=== PATIENT | female | born 1950 | race Caucasian/White ===

== ENCOUNTER 2016-11-28 15:29 | Emergency (ER) | payer MEDICARE, MEDICAID ==
[~2016-11-28] VITALS: Ht 162.6 cm; Wt 75.3 kg
[~2016-11-28 15:29] MED LIST: /DULO30CA PO; /PHEN50TA PO; ASPI325T PO; BACL10TA2 PO; BENI20TA5 PO; CALC-190 PO; CLOP75TA2 PO; CYCL5TAB PO; DILA100C PO; FLUO20CA8 PO; GABA300C2 PO; HYDR12.56 PO; IBAN150T PO; LYRI75CA PO; METF500T PO; OXYC-208 PO; OXYC5CAP2 PO; POTA75TA2 PO; REME30TA PO; SOMA350T PO; VICO5TAB PO; VOLT1GEL2 TOP; ZETI10TA21 PO
[2016-11-28] MEDS ORDERED: fentaNYL 100 MCG/2 ML INJECTION (J3010) IV ONE ×2 (16:15→18:15)
[2016-11-28 16:32] LABS: BASO # 0.1 K/mm3 (0.0-0.2); BASO % 0.6 % (0.0-1.0); EOS # 0.1 K/mm3 (0.0-0.50); EOS % 0.9 % (0.0-3.0); LARGE UNSTAINED CELL # 0.1 K/mm3 (0.0-0.4); LARGE UNSTAINED CELL % 0.8 % (0.0-4.0); LYMPH # 2.2 K/mm3 (1.5-4.5); LYMPH % 14.9 % (24.0-44.0); MEAN CORPUSCULAR HEMOGLOBIN 30.2 pg (27.0-33.0); MEAN CORPUSCULAR HGB CONC 33.4 g/dl (32.0-36.5); MEAN CORPUSCULAR VOLUME 90.5 fl (80.0-96.0); MONO # 0.3 K/mm3 (0.0-0.8); MONO % 2.3 % (0.0-5.0); NEUTROPHILS # 11.2 K/mm3 (1.8-7.7); NEUTROPHILS % 80.5 % (36.0-66.0); PLATELET COUNT, AUTOMATED 272 k/mm3 (150-450); RED CELL DISTRIBUTION WIDTH 13.2 % (11.5-14.5); WHITE BLOOD COUNT 13.9 K/mm3 (4.0-10.0)
[2016-11-28 16:46] LABS: INR 0.97
[2016-11-28 16:52] LABS: ANION GAP 5 MEQ/L (8-16); BLOOD UREA NITROGEN 24 MG/DL (7-18); CALCIUM LEVEL 9.4 MG/DL (8.8-10.2); CARBON DIOXIDE LEVEL 29 MEQ/L (21-32); CHLORIDE LEVEL 104 MEQ/L (98-107); CREATININE FOR GFR 0.91 MG/DL (0.55-1.02); GLOMERULAR FILTRATION RATE > 60.0 (>45); GLUCOSE, FASTING 152 MG/DL (80-110); POTASSIUM SERUM 3.5 MEQ/L (3.5-5.1); SODIUM LEVEL 138 MEQ/L (136-145)
[2016-11-28 18:33] VITALS: BP 143/63
== END 2016-11-28 18:36 | disposition short-term general hospital (02) ==
LOC: EDBD 15:29 → M ED 17:02
DX: I99.8 Other disorder of circulatory system (principal); M79.661 Pain in right lower leg; Z95.828 Presence of other vascular implants and grafts; E11.9 Type 2 diabetes mellitus without complications; I10 Essential (primary) hypertension; E78.00 Pure hypercholesterolemia, unspecified; F32.9 Major depressive disorder, single episode, unspecified; F17.200 Nicotine dependence, unspecified, uncomplicated; Z88.5 Allergy status to narcotic agent; Z88.0 Allergy status to penicillin; Z88.8 Allergy status to other drugs, medicaments and biological substances; Z79.899 Other long term (current) drug therapy; Z79.82 Long term (current) use of aspirin; Z79.01 Long term (current) use of anticoagulants; Z86.73 Personal history of transient ischemic attack (TIA), and cerebral infarction without residual deficits; Z86.711 Personal history of pulmonary embolism
CPT/HCPCS: 80048; 85025; 85610; 85730; 96374; 96376; 99284; J3010

== ENCOUNTER → 2016-12-29 | Outpatient (CLI) | payer MEDICARE, MEDICAID ==
[~2016-12-29] MED LIST changes: +ISOVUE-370 76% 100ML VIAL (Q9967) As Ordered ONE
--- NOTE | 2016-12-30 10:10 | REP ---
CT ANGIOGRAM ABDOMINAL AORTA AND BILATERAL LOWER EXTREMITIES: CT angiogram of the abdominal aorta and bilateral lower extremities performed following the intravenous administration of 100 mL of Isovue-370. Sagittal, coronal and MIP reconstruction images are performed. Comparison made with prior study of 11/12/2015. Moderate atherosclerotic plaquing and narrowing is seen of the distal abdominal aorta. There is moderate stenosis of the celiac artery, which appears unchanged. There is moderate narrowing of the origin of the superior mesenteric artery, which appears unchanged. Tiny inferior mesenteric artery is present. There appears to be at least a moderate degree of stenosis of the proximal renal arteries bilaterally. Right common iliac artery demonstrates moderate diffuse circumferential calcific plaque and moderate narrowing. Moderately severe stenosis is seen of the proximal right external iliac artery which appears to have worsened somewhat since the prior exam. There is high grade stenosis of the right internal iliac artery. There is moderate diffuse narrowing of the remaining right external iliac artery as well as the right common femoral artery. In the interim, since the prior study, the patient had placement of a right femoral popliteal bypass graft. There is no contrast in the graft consistent with occlusion. Moderate narrowing is seen diffusely of the right profunda artery. [place] right superficial femoral artery appears occluded. There are multiple small collateral vessels traversing through the right thigh soft tissues. There appears to be occlusion of the right popliteal artery. There does appear to be reconstitution of the proximal right anterior tibial artery which traverses into the right foot. A very thin peroneal artery is seen which is visualized into the distal third of the right calf. The posterior tibial artery demonstrates extensive calcification but no flow. Left common iliac artery demonstrates moderate diffuse narrowing. There appears to be fairly high grade stenosis at the origin of the left external iliac artery. Left internal iliac artery appears occluded. There is moderate diffuse narrowing of the more distal left external iliac artery and common femoral artery. Left profunda is patent with mild narrowing. There is occlusion of the origin of the left superficial femoral artery. Multiple small clot or vessels traverse through the soft tissues of the left thigh. Proximal left popliteal artery is reconstituted and is quite thin. There is moderate diffuse narrowing of the left popliteal artery. Left anterior tibial artery is visualized and is quite thin in the distal calf, but does traverse into the left foot. Peroneal artery is also quite thin distally and appears to terminate just above the ankle. Posterior tibial artery is moderately narrowed proximally and appears to terminate just above the ankle. A small nodule in the right lung is unchanged since the prior study. Liver, spleen, pancreas and kidneys appear unremarkable. There is adrenal gland thickening bilaterally which is stable. No adenopathy, free air or free fluid is seen in the abdomen or pelvis. IMPRESSION: No change in the degree of narrowing of the mesenteric arteries and renal arteries. There appears to be increased moderate to severe stenosis at the origin of the right external iliac artery. The right fem-pop bypass graft is occluded. Right superficial femoral artery is occluded. Multiple collateral vessels reconstitute the anterior tibial and peroneal arteries in the right calf with only a thin anterior tibial artery seen entering the right foot. High grade stenosis at the origin of the left external iliac artery appears to have increased since prior study. There is occlusion of the left superficial femoral artery. Multiple collateral vessels reconstitute a moderately narrowed left popliteal artery. All three calf arteries on the left extend into the distal calf, but only the anterior tibial artery is seen entering the left foot. Signed by Jax Gutierrez MD 01/02/2017 03:59 P
== END ==
LOC: M RAD 15:15
PROVIDERS: ATTEND Surgery Vascular Surgery
DX: I70.511 Atherosclerosis of nonautologous biological bypass graft(s) of the extremities with intermittent claudication, right leg (principal)
CPT/HCPCS: 75635; Q9967

== ENCOUNTER → 2017-05-09 | Outpatient (REF) | payer MEDICARE, MEDICAID ==
[~2017-05-09] MED LIST changes: -ISOVUE-370 76% 100ML VIAL (Q9967) As Ordered ONE; -METF500T PO; +METF500T13 PO
== END ==
LOC: EEVIPCON 16:28 → M LAB REF 16:28
PROVIDERS: ATTEND Nurse Practitioner Adult Health
DX: T87.40 Infection of amputation stump, unspecified extremity (principal)

== ENCOUNTER → 2018-04-04 | Outpatient (REF) | payer MEDICARE, MEDICAID | LOC: M LAB REF 17:23 | DX: L89.891 Pressure ulcer of other site, stage 1 (principal) | CPT/HCPCS: 87186 ==

== ENCOUNTER → 2019-03-04 | Outpatient (REF) | payer MEDICARE, MEDICAID ==
[~2019-03-04] MED LIST changes: -/DULO30CA PO; -/PHEN50TA PO; +CYMB1CAP5 PO; +[UNRECOGNIZED DRUG - CODE] PO
[2019-03-04 18:44] LABS: C REACTIVE PROTEIN QUANTITATIV 3.24 MG/DL (0.00-0.30)
[2019-03-07 14:09] LABS: Alkaline Phosphatase Iso-Bone 34 % (14-68); Alkaline Phosphatase Iso-Intes 29 % (0-18); Alkaline Phosphatase Iso-Liver 37 % (18-85); TOTAL ALK PHOS 186 IU/L (39-117)
== END ==
LOC: M LAB REF 16:57
PROVIDERS: ATTEND Internal Medicine
DX: R74.8 Abnormal levels of other serum enzymes (principal); M86.9 Osteomyelitis, unspecified

== ENCOUNTER → 2019-04-29 | Outpatient (REF) | payer MEDICARE, MEDICAID | LOC: M LAB REF 17:14 | PROVIDERS: ATTEND Internal Medicine | DX: M86.9 Osteomyelitis, unspecified (principal) ==

== ENCOUNTER 2019-12-18 00:55 | Inpatient (IN) | payer MEDICARE, MEDICAID ==
[~2019-12-18] VITALS: Ht 157.5 cm; Wt 68.8 kg
[2019-12-18 02:45] VITALS: BP 148/64
[2019-12-18] MEDS: ACETAMINOPHEN TAB 650MG DOSE (2X325MG) PO PRN ×2 (03:21→20:21)
[2019-12-18] MEDS: NS 1,000 ML IV SCH ×2 (03:21→15:32)
[2019-12-18 03:43] LABS: BASO # 0.1 10^3/uL (0.0-0.2); BASO % 0.9 % (0.0-1.0); EOS # 0.1 10^3/uL (0.0-0.5); EOS % 0.9 % (0.0-3.0); HEMATOCRIT 29.3 % (36.0-47.0); HEMOGLOBIN 8.4 g/dl (12.0-15.5); LYMPH # 3.3 10^3/uL (1.5-5.0); LYMPH % 20.3 % (24.0-44.0); MEAN CORPUSCULAR HGB CONC 28.7 g/dl (32.0-36.5); MEAN CORPUSCULAR VOLUME 69.9 fl (80.0-96.0); MONO # 0.9 10^3/uL (0.0-0.8); MONO % 5.7 % (0.0-5.0); NEUTROPHILS # 11.7 10^3/uL (1.5-8.5); NEUTROPHILS % 71.7 % (36.0-66.0); PLATELET COUNT, AUTOMATED 553 10^3/uL (150-450); RED BLOOD COUNT 4.19 10^6/uL (4.00-5.40); WHITE BLOOD COUNT 16.3 10^3/uL (4.0-10.0)
[2019-12-18 03:53] LABS: INR 1.46; PROTHROMBIN TIME 17.4 SECONDS (11.8-14.0)
[2019-12-18 04:00] VITALS: BP 131/65
[2019-12-18 04:06] LABS: ALBUMIN 3.1 GM/DL (3.2-5.2); ALT/SGPT 12 U/L (12-78); BILIRUBIN,TOTAL 0.5 MG/DL (0.2-1.0); BLOOD UREA NITROGEN 11 MG/DL (7-18); CALCIUM LEVEL 8.5 MG/DL (8.8-10.2); CARBON DIOXIDE LEVEL 26 MEQ/L (21-32); CHLORIDE LEVEL 107 MEQ/L (98-107); CREATININE FOR GFR 0.69 MG/DL (0.55-1.30); GLOMERULAR FILTRATION RATE > 60.0 (>45); GLUCOSE, FASTING 98 MG/DL (70-100); POTASSIUM SERUM 3.5 MEQ/L (3.5-5.1); SODIUM LEVEL 139 MEQ/L (136-145); TOTAL PROTEIN 7.1 GM/DL (6.4-8.2)
[2019-12-18] MEDS ORDERED: BUPR15TASR PO (04:29)
[2019-12-18] MEDS ORDERED: ROSU5TAB5 PO (04:29)
[2019-12-18] MEDS ORDERED: OLME20TA2 PO (04:29)
[2019-12-18] MEDS ORDERED: GABA600T4 PO (04:29)
[2019-12-18] MEDS ORDERED: ZETI10TA16 PO (04:29)
[2019-12-18] MEDS ORDERED: XARE20TA PO (04:29)
[2019-12-18] MEDS ORDERED: NORT10CA2 PO (04:29)
[2019-12-18] MEDS ORDERED: FLUO20TA28 PO (04:29)
[2019-12-18] MEDS ORDERED: MIRT1TAB17 PO (04:29)
[2019-12-18] MEDS ORDERED: OMEP-218 PO (04:29)
[2019-12-18] MEDS ORDERED: HYDR-3713 PO (04:29)
[2019-12-18] MEDS ORDERED: JANU100T PO (04:29)
[2019-12-18] MEDS ORDERED: LORA0.5T5 PO (04:29)
[2019-12-18] MEDS ORDERED: MELA10TA PO (04:53)
[2019-12-18] MEDS ORDERED: TORS100T PO (04:53)
[2019-12-18] MEDS ORDERED: ASPI-1 PO (04:53)
--- NOTE | 2019-12-18 05:45 | HPEPDOC ---
General Date of Admission Dec 18, 2019 at 02:45 Date of Service: Dec 18, 2019 Primary Care Physician: Jr Waters Collins Other Providers Wound care: Dr. Almodovar Vascular surgeon: Dr. Jacobsen in [place] Attending Physician: KEY DOBSON MD Chief Complaint The patient is a 69-year-old female admitted with a reason for visit of Symptomatic Anemia. History of Present Illness HPI: This is a 69-year-old female with significant peripheral vascular disease, S/P femoropopliteal bypass years ago, initially on aspirin and Plavix, then switched to aspirin and Xarelto for the past 1-2 years - patient unsure why. She is a direct transfer from [facility] for anemia requiring further workup and GI intervention. She was sent initially to the hospital by her PCP after she had routine labs drawn for an annual physical and found incidentally to have a hemoglobin of 6.1, down from 9.5 in August. She reportedly tested guaiac positive, received 2 units PRBC at [place], thereafter was transferred for GI intervention. Her repeat hemoglobin upon transfer is up to 8.4. When examined at bedside, she is hemodynamically stable and asymptomatic. She denies all complaints and reports that had it not been for her lab work, she would feel like her normal self. Denies any history of bleeds or ever requiring blood transfusions. Denies any blood loss or any changes in bowels. She reports she had 1 colonoscopy for routine screening over a decade ago which she reports was normal besides a few polyps. 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 Nain Pringle Left iliac endarthrectomy 2018 Left iliac to popliteal bypass 2018 Hysterectomy Left carotid endarterectomy, 3 stents Cataract Sx Family Hx: Brother with lung cancer Father with stroke Mother with heart disease Social Hx: Long-term smoker 1-1.5 PPD since teenage years Denies alcohol or illicit substances Lives alone at home; niece nearby to help ROS: Constitutional: Denies fever, chills, night sweats, weight loss HEENT: Denies headache, dysphagia Skin: Denies any rashes or lesions. Admits to left lower extremity wounds Pulmonary: Denies dyspnea, cough, wheezing Cardiac: Denies chest pain, palpitations, orthopnea, PND, edema, lightheadedness GI: Denies nausea, vomiting, abdominal pain, dyspepsia, diarrhea, constipation, melena, hematochezia, appetite change, bloating : Denies hematuria MSK: Denies new pains or weakness. Admits chronic wound pain. Neurologic: Denies new numbness/tingling PHYSICAL: General exam: A&Ox3, NAD, resting comfortably HEENT: NCAT, EOMI, anicteric sclera, pale conjunctiva, moist mucous membranes, neck supple without adenopathy Cardiac: RRR, normal S1 & S2, no murmurs Respiratory: CTAB, good air exchange, no w/r/r Abdomen: soft, NT, ND, normoactive bowel sounds. No hepatosplenomegaly or palpable masses Extremity: 2+ radial pulses, no edema or calf tenderness. Right AKA with soft healthy-appearing stump. Skin: Pale-appearing, warm, dry, no visible rash. Left lower extremity with 2 dressings for chronic lower leg wounds Msk: strength 5/5 all limbs, normal tone Neuro: normal speech, no focal deficits Psych: Normal mood, flat affect LABORATORY DATA, MICROBIOLOGY: Please see below. ASSESSMENT AND PLAN: This is a 69-year-old female directly transferred from [facility]. She has extensive past medical history as noted above, chronically on Plavix and Xarelto for peripheral vascular disease with stents, carotid artery disease with stents, and questionable history of a PE. She was incidentally found to have a hemoglobin of 6.1, down from 9.5 just 3 months ago. Is asymptomatic and denies all blood loss. 1. Acute blood loss anemia - Hemoglobin dropped from 9.5-6.1 since August - Patient denies all symptoms and denies any visual blood loss - Reportedly guaiac positive at [facility] - S/P 2 units PRBC prior to transfer, with adequate rise up to 8.4 upon admission - Verbal and written consent for transfusion obtained with staff present - Trend H&H and transfuse as needed. Hemodynamically stable - Xarelto and ASA on hold - Monitor on telemetry. Consult GI in the morning for possible scope - Will make nothing by mouth & on IVF tentatively until day team discusses with GI For the remainder of her chronic medical conditions as aforementioned, hold home meds in case patient will go for scope today. DVT prophylaxis: mechanical CODE STATUS: Discussed with patient. She is unsure and would like more time to think about it. She also has no appointed healthcare proxy, but reports she would like her niece to make decisions if needed. DISPOSITION: Admit to hospital. Call GI in a.m. Home Medications Scheduled Aspirin (Aspirin) 325 Mg Tablet, 325 MG PO DAILY, (Reported) Bupropion HCl (Bupropion HCl Sr) 150 Mg Tab.er.12h, 150 MG PO DAILY, (Reported) Ezetimibe (Zetia) 10 Mg Tablet, 10 MG PO DAILY, (Reported) Fluoxetine HCl (Fluoxetine HCl) 20 Mg Tablet, 30 MG PO DAILY, (Reported) Gabapentin (Gabapentin) 600 Mg Tablet, 600 MG PO TID, (Reported) Melatonin (Melatonin) 10 Mg Tab.mphase, 15 MG PO QHS, (Reported) Mirtazapine (Mirtazapine) 45 Mg Tab.rapdis, 45 MG PO QHS, (Reported) Nortriptyline HCl (Nortriptyline HCl) 10 Mg Capsule, 10 MG PO QHS, (Reported) Olmesartan Medoxomil (Olmesartan Medoxomil) 20 Mg Tablet, 20 MG PO DAILY, (Reported) Omeprazole (Omeprazole) 20 Mg Capsule.dr, 20 MG PO DAILY, (Reported) Rivaroxaban (Xarelto) 20 Mg Tablet, 20 MG PO DAILY, (Reported) Rosuvastatin Calcium (Rosuvastatin Calcium) 5 Mg Tablet, 5 MG PO QHS, (Reported) Sitagliptin Phosphate (Januvia) 100 Mg Tablet, 100 MG PO DAILY, (Reported) Torsemide (Torsemide) 100 Mg Tablet, 100 MG PO DAILY, (Reported) Scheduled PRN Lorazepam (Lorazepam) 0.5 Mg Tablet, 0.5 MG PO DAILY PRN for ANXIETY, (Reported) Allergies Coded Allergies: Penicillins (Verified Allergy, Intermediate, HIVES, 12/18/19) pregabalin (Verified Allergy, Unknown, SPASMS, 12/18/19) morphine (Verified Adverse Reaction, Intermediate, HALLUCINATIONS, 12/18/19) codeine (Verified Adverse Reaction, Mild, NAUSEA, 12/18/19) A-FIB/CHADSVASC A-FIB History Current/History of A-Fib/PAF?: No Vital Signs Vital Signs Date Time Temp Pulse Resp B/P (MAP) Pulse Ox O2 Delivery O2 Flow Rate FiO2 12/18/19 02:45 97.2 90 16 148/64 (92) 96 Room Air Laboratory Data Labs 24H Laboratory Tests 2 12/18/19 03:34: Immature Granulocyte % (Auto) 0.5, Neutrophils (%) (Auto) 71.7H, Lymphocytes (%) (Auto) 20.3L, Monocytes (%) (Auto) 5.7H, Eosinophils (%) (Auto) 0.9, Basophils (%) (Auto) 0.9, Neutrophils # (Auto) 11.7H, Lymphocytes # (Auto) 3.3, Monocytes # (Auto) 0.9H, Eosinophils # (Auto) 0.1, Basophils # (Auto) 0.1, Nucleated Red Blood Cells % (auto) 0.3H, Prothrombin Time 17.4H, Prothromb Time International Ratio 1.46, Anion Gap 6L, Glomerular Filtration Rate > 60.0, Lactic Acid Level 1.0, Calcium Level 8.5L, Total Bilirubin 0.5, Aspartate Amino Transf (AST/SGOT) 12, Alanine Aminotransferase (ALT/SGPT) 12, Alkaline Phosphatase 223H, Total Protein 7.1, Albumin 3.1L, Albumin/Globulin Ratio 0.78L CBC/BMP Laboratory Tests 12/18/19 03:34 Microbiology Microbiology 12/18/19 Blood Culture, Received Pending 12/18/19 Blood Culture, Received Pending Plan / VTE VTE Prophylaxis Ordered?: Yes GME ATTESTATION GME ATTESTATION My faculty preceptor for this patient encounter was physically present during the encounter and was fully available. All aspects of the patient interview, examination, medical decision making process, and medical care plan development were reviewed and approved by the faculty preceptor. The faculty preceptor is aware and concurs with the plan as stated in the body of this note and will attest to such by his/her cosignature. ATTENDING NOTE I, Key Dobson, have independently examined this patient and performed my own physical exam, as well as reviewed the documentation and edited where necessary. I have discussed in detail with the resident / student the findings and plan of treatment as documented by the resident / student and edited their note. I agree with their findings and treatment plan and have edited their documentation. I will continue to follow the patient during this hospital stay. JOSI العلي DO Dec 18, 2019 05:45 KEY DOBSON MD Dec 19, 2019 01:53
--- NOTE | 2019-12-18 06:31 | ECGEPIP ---
[facility] Test Date: 2019-12-18 Pat Name: DEONNA NUNN Department: Room: [place] [address] Gender: Female Facing Baster Jumpbasting: DESHAUN IRVIN : 1950 Requested By: JOSI العلي Order Number: [id number] Reading MD: Norm Pappas Measurements Intervals [place] Rate: 87 P: 59 OH: 172 QRS: 42 QRSD: 107 T: 34 QT: 375 QTc: 453 Interpretive Statements SINUS RHYTHM POSSIBLE LEFT ATRIAL ENLARGEMENT Comparison tracing not on file Electronically Signed on 12-18-2019 6:31:14 EDT by Norm Pappas
[2019-12-18 08:00] VITALS: BP 155/65
[2019-12-18] MEDS ORDERED: POTASSIUM CHLORIDE 10 MEQ SR TABLET PO ONE (08:00)
[2019-12-18] MEDS ORDERED: LORazepam 0.5 MG TAB PO PRN (08:15)
[2019-12-18] MEDS: GABAPENTIN 300 MG CAP PO SCH ×3 (08:56→20:22)
[2019-12-18] MEDS: EZETIMIBE 10 MG TAB (ZETIA) PO SCH (08:56)
[2019-12-18] MEDS ORDERED: DEXTROSE 50% 50 ML SYRINGE IV PRN (09:15)
[2019-12-18] MEDS ORDERED: GLUCOSE 4GM CHEW TABLET PO PRN (09:15)
[2019-12-18] MEDS ORDERED: GLUCAGON INJ 1MG VIAL SC PRN (09:15)
[2019-12-18] MEDS: OLMESARTAN MEDOXOMIL 20 MG TAB (BENICAR) PO SCH (10:18)
[2019-12-18] MEDS: FLUoxetine 10 MG CAP PO SCH (10:18)
[2019-12-18] MEDS: buPROPion **SR TABLET** (ZYBAN) 150MG PO SCH (10:18)
[2019-12-18] MEDS: FLUoxetine 20 MG CAP PO SCH (10:21)
[2019-12-18] MEDS: HumaLOG INSULIN (NovoLOG) PER UNIT SC SCH ×3 (11:22→20:26)
[2019-12-18 12:00] VITALS: BP 160/71
--- NOTE | 2019-12-18 13:55 | IPNPDOC ---
Text Note Date of Service The patient was seen on 12/18/19. NOTE Subjective: -reporting pain in her LLE, chronic, requesting her home norco PHYSICAL: General exam: A&Ox3, NAD HEENT: NCAT, EOMI, anicteric sclera, pale conjunctiva, moist mucous membranes Cardiac: RRR, normal S1 & S2, no murmurs Respiratory: CTAB, no w/r/r Abdomen: Normoactive bowel sounds, soft, NT, ND, noted hepatosplenomegaly or palpable masses Extremity: 2+ radial pulses, no edema or calf tenderness. Right AKA with intact stump, pale, Skin: Pale, warm, no rashes. Left lower extremity with 2 dressings that are c/d/i Msk: strength 5/5 all limbs, normal tone Neuro: normal speech, CN grossly intact, no focal deficits Psych: Normal mood, flat affect LABORATORY DATA wbc 16.3 hgb 8.4 platelets 553 INR 1.46 K 3.5 Cr 0.69 BCx - pending ASSESSMENT AND PLAN: 69-year-old W with history of PVD on plavix/rivaroxaban, questionable history of PE and CAD who was incidentally found to have worsening anemia on PCP routine labs and sent to the ED, down from hgb of 9.5, 3 months ago without noted history of melena, hematochezia or hematemesis. 1. Acute on chronic anemia: Likely GIB in the setting of full anticoagulation - Hemoglobin dropped from 9.5-6.1 since 08/2019, reportedly guaiac positive at [facility] - S/P 2 units PRBC prior to transfer, with adequate rise up to 8.4 upon admission, will monitor - Trend H&H and transfuse to goal Hgb >8 - Consulted GI this AM, will plan for likely both upper and lower scoping tomorrow, with prep today per Dr. Quiroga. Recommended clear liquid diet for today and prep. - NPO & IVF until discussion with GI - Hold ASA/rivaroxaban - NPO at midnight CAD -continue rosuvastatin/ezetimibe -hold ASA in the setting of ongoing GIB HLD: -continue rosuvastatin/ezetimibe PVD: --continue rosuvastatin/ezetimibe -hold ASA/rivaroxaban in the setting of presumed GIB DM: -hold sitagliptin and place on SSI -clear liquid diet -FSBG AC/HS -hypoglycemia protocol Depression and anxiety: -continue home fluoxetine, mirtazapine, ativan HTN: -continue ARB, hold torsemide Chronic LE pain: -continue home nortriptyline and gabapentin -restart home norco 5/325 Q6H PRN (confirmed with Kan Fontana) DVT ppx: SCDs, hold AC Diet: clear liquid diet CODE STATUS: Discussed with patient. She is unsure and would like more time to think about it, currently FULLCODE. She also has no appointed healthcare proxy, but reports she would like her niece to make decisions if needed. DISPOSITION:pending GI evaluation, for now will downgrade to same day surgery center. VS,Fishbone, I+O VS, Fishbone, I+O Laboratory Tests 12/18/19 03:34 Vital Signs Date Time Temp Pulse Resp B/P (MAP) Pulse Ox O2 Delivery O2 Flow Rate FiO2 12/18/19 04:00 97.5 86 18 131/65 (87) 95 Room Air I&O- Last 24 Hours up to 6 AM 12/18/19 06:00 Intake Total 220 ml Balance 220 ml JESICA KNIGHT MD Dec 18, 2019 08:05
[2019-12-18] MEDS: NORCO, ANEXSIA 5/325MG TABLET (HYDROcodone/ACETAMINOPHEN) PO PRN ×3 (14:21→21:52)
--- NOTE | 2019-12-18 15:49 | CR.PDOC ---
General Date of Consultation: Dec 18, 2019 Referring Provider: JESICA KNIGHT MD Attending Physician: MARI ADAMS MD Consultation Primary physician/ hospitalist: -Dr. Dobson / Dr. Waters Reason for consult: -Drop in hemoglobin and hematocrit with symptomatic anemia HPI: 69-year-old female patient with HTN, HLD, DM type II, PVD s/p femoropopliteal bypass many years ago, currently on aspirin and Xarelto for the past 1-2 years, right AKA, 4 years ago for gangrene, left carotid endarterectomy with 3 stents, prior hysterectomy, was admitted from [facility], after noticing anemia on routine labs.. Patient denies any active GI symptoms and denies any overt external bleeding. Patient reports her last Colonoscopy atleast 10 years ago and had colon polyps at that time ( done outside [facility] and no reports available). Patient never had EGD and denies any use of NSAIDs. Patient last dose of xarelto on Sunday/ sunday. Pertinent negative GI symptoms: Patient denies fever, sick contacts, recent travel, nausea, vomiting, diarrhea, abdominal pain, loss of appetite, early satiety or unintentional weight loss. No history of hematemesis, melena or hematochezia. Patient reports regular bowel movements. Review of Systems: GI: as stated above CVS: No chest pain, No palpitations, No leg swelling. RS: No Shortness of breath, No Wheezing, no cough DAG COATER: No dizziness, No motor weakness, No sensory problems Hematology: No bruising, No gum bleeding, Musculoskeletal: No joint pain, ambulating well. Skin: No rash : No hematuria, No burning sensation of the urine ENT: No ear discharge/ pain, No dysphagia. Eyes: No photophobia. Jaundice Home medications: reviewed. Antithrombotic agents: -Aspirin 81 MG and Xarelto -- last dose atleast 2 days ago. Medical h/o: As above. Surgical h/o: None on abdomen. Social h/o: Alcohol: -Denies, smoking:, Active smoker, IVDA/ drugs: Denies. Family h/o of GI cancers - None Prior Endoscopies: None in [facility] Prior GI evaluations: -None in [facility] Exam: Vitals: reviewed General: Alert and oriented x 3, not in distress HEENT: NO pallor, no icterus. Normal oropharynx, NO cervical lymph nodes. Chest: symmetric with bilateral clear air entry, CVS: S1, S2 heard, normal, no murmurs . Abdomen: non-distended, no surgical scars, soft, non-tender, no palpable masses, normal bowel sounds heard. Rectal exam: Patient refused / Deferred at this time in view of scheduled colonoscopy. Extremities: no pedal edema, pulses palpable. DAG COATER: no focal motor or sensory deficits. Moves all extremities Skin: no rash. Labs: reviewed. Impression: - Drop in hemoglobin and hematocrit with minimal symptoms of anemia and no overt external GI bleeding in a patient on anticoagulation with aspirin and Xarelto -- needs further evaluation to rule out chronic GI blood loss. DDx-- colon polyps vs AMVs, vs less likely PUD. Recommendations: - Patient educated about the test results, possible differential diagnoses and All questions answered. - Monitor H/ H and transfuse as needed to keep hemoglobin around 8- 9gm/ dL. - Consider IV PPI for now. - Consider hold Xarelto for now if not contraindicated. - Will schedule for EGD and Colonoscopy tomorrow after the bowel prep. Bowel prep ordered. - The procedures, indications, risks (bleeding, perforation, infection, hypotension, respiratory depression, allergy, need for endotracheal intubation, surgery, colostomy, cardiac arrest, even ), benefits, limitations (e.g., missing a lesion), and all other alternatives (including no intervention) were explained to the patient who understood and agreed for the procedures. - Please follow operative note for postprocedure recommendations. Plan of care discussed with patient and primary team. Patient verbalized understanding and agreed with the plan. Vital Signs/I&O Vital Signs Date Time Temp Pulse Resp B/P (MAP) Pulse Ox O2 Delivery O2 Flow Rate FiO2 12/18/19 15:29 20 12/18/19 12:00 97.9 88 160/71 (100) 97 Room Air Laboratory Data Labs 24H Laboratory Tests 2 12/18/19 03:34: Immature Granulocyte % (Auto) 0.5, Neutrophils (%) (Auto) 71.7H, Lymphocytes (%) (Auto) 20.3L, Monocytes (%) (Auto) 5.7H, Eosinophils (%) (Auto) 0.9, Basophils (%) (Auto) 0.9, Neutrophils # (Auto) 11.7H, Lymphocytes # (Auto) 3.3, Monocytes # (Auto) 0.9H, Eosinophils # (Auto) 0.1, Basophils # (Auto) 0.1, Nucleated Red Blood Cells % (auto) 0.3H, Prothrombin Time 17.4H, Prothromb Time International Ratio 1.46, Anion Gap 6L, Glomerular Filtration Rate > 60.0, Lactic Acid Level 1.0, Calcium Level 8.5L, Total Bilirubin 0.5, Aspartate Amino Transf (AST/SGOT) 12, Alanine Aminotransferase (ALT/SGPT) 12, Alkaline Phosphatase 223H, Total Protein 7.1, Albumin 3.1L, Albumin/Globulin Ratio 0.78L, Procalcitonin 0.16 12/18/19 11:12: Bedside Glucose (Misc Panel) 137H CBC/BMP Laboratory Tests 12/18/19 03:34 Microbiology Microbiology 12/18/19 Stool Occult Blood (BEATRIZ) - Final, Complete 12/18/19 Blood Culture, Received Pending 12/18/19 Blood Culture, Received Pending Allergies Coded Allergies: Penicillins (Verified Allergy, Intermediate, HIVES, 12/18/19) pregabalin (Verified Allergy, Unknown, SPASMS, 12/18/19) morphine (Verified Adverse Reaction, Intermediate, HALLUCINATIONS, 12/18/19) codeine (Verified Adverse Reaction, Mild, NAUSEA, 12/18/19) Home Medications Scheduled Aspirin (Aspirin) 325 Mg Tablet, 325 MG PO DAILY, (Reported) Bupropion HCl (Bupropion HCl Sr) 150 Mg Tab.er.12h, 150 MG PO DAILY, (Reported) Ezetimibe (Zetia) 10 Mg Tablet, 10 MG PO DAILY, (Reported) Fluoxetine HCl (Fluoxetine HCl) 20 Mg Tablet, 30 MG PO DAILY, (Reported) Gabapentin (Gabapentin) 600 Mg Tablet, 600 MG PO TID, (Reported) Melatonin (Melatonin) 10 Mg Tab.mphase, 15 MG PO QHS, (Reported) Mirtazapine (Mirtazapine) 45 Mg Tab.rapdis, 45 MG PO QHS, (Reported) Nortriptyline HCl (Nortriptyline HCl) 10 Mg Capsule, 10 MG PO QHS, (Reported) Olmesartan Medoxomil (Olmesartan Medoxomil) 20 Mg Tablet, 20 MG PO DAILY, (Reported) Omeprazole (Omeprazole) 20 Mg Capsule.dr, 20 MG PO DAILY, (Reported) Rivaroxaban (Xarelto) 20 Mg Tablet, 20 MG PO DAILY, (Reported) Rosuvastatin Calcium (Rosuvastatin Calcium) 5 Mg Tablet, 5 MG PO QHS, (Reported) Sitagliptin Phosphate (Januvia) 100 Mg Tablet, 100 MG PO DAILY, (Reported) Torsemide (Torsemide) 100 Mg Tablet, 100 MG PO DAILY, (Reported) Scheduled PRN Lorazepam (Lorazepam) 0.5 Mg Tablet, 0.5 MG PO DAILY PRN for ANXIETY, (Reported) MARI ADAMS MD Dec 18, 2019 15:49
[2019-12-18 16:00] VITALS: BP 137/58
[2019-12-18 20:00] VITALS: BP 142/54
[2019-12-18 20:07] LABS: HEMATOCRIT 26.9 % (36.0-47.0); HEMOGLOBIN 7.8 g/dl (12.0-15.5); MEAN CORPUSCULAR HEMOGLOBIN 20.3 pg (27.0-33.0); MEAN CORPUSCULAR VOLUME 70.1 fl (80.0-96.0); PLATELET COUNT, AUTOMATED 514 10^3/uL (150-450); RED BLOOD COUNT 3.84 10^6/uL (4.00-5.40); WHITE BLOOD COUNT 14.6 10^3/uL (4.0-10.0)
[2019-12-18] MEDS: ROSUVASTATIN 10 MG TAB (CRESTOR) PO SCH (20:22)
[2019-12-18] MEDS: MIRTAZAPINE 15 MG TAB PO SCH (20:22)
[2019-12-18] MEDS: NORTRIPTYLINE 10 MG CAP PO SCH (20:23)
[2019-12-18] MEDS ORDERED: GOLYTELY SOLN 4000 ML BTL PO ONE (20:30)
[2019-12-18] MEDS ORDERED: PILL CUTTER 1 EACH XX PRN (20:45)
[2019-12-18] MEDS ORDERED: BISACODYL 5 MG TAB PO ONE (21:30)
[2019-12-18] MEDS ORDERED: NYSTATIN 100,000 UNITS/GM TOPICAL PWD 15 GM TOP PRN (22:15)
[2019-12-19] VITALS (12 sets, daily range): BP systolic 140–186; BP diastolic 60–83
[2019-12-19] MEDS ORDERED: FUROSEMIDE 40MG/4ML VIAL (J1940) IV ONE (00:30)
[2019-12-19] MEDS ORDERED: LISINOPRIL *2.5 MG* TAB PO ONE (01:45)
[2019-12-19] MEDS: ACETAMINOPHEN TAB 650MG DOSE (2X325MG) PO PRN ×2 (02:50→20:05)
[2019-12-19] MEDS: NORCO, ANEXSIA 5/325MG TABLET (HYDROcodone/ACETAMINOPHEN) PO PRN ×2 (04:34→16:17)
[2019-12-19] MEDS: OLMESARTAN MEDOXOMIL 20 MG TAB (BENICAR) PO SCH (05:02)
[2019-12-19 05:58] LABS: BASO # 0.2 10^3/uL (0.0-0.2); EOS # 0.2 10^3/uL (0.0-0.5); EOS % 1.1 % (0.0-3.0); HEMATOCRIT 36.7 % (36.0-47.0); LYMPH # 2.9 10^3/uL (1.5-5.0); MEAN CORPUSCULAR HEMOGLOBIN 21.7 pg (27.0-33.0); MEAN CORPUSCULAR VOLUME 72.4 fl (80.0-96.0); MONO # 0.8 10^3/uL (0.0-0.8); MONO % 4.9 % (0.0-5.0); NEUTROPHILS # 12.8 10^3/uL (1.5-8.5); NEUTROPHILS % 75.6 % (36.0-66.0); PLATELET COUNT, AUTOMATED 603 10^3/uL (150-450); RED BLOOD COUNT 5.07 10^6/uL (4.00-5.40); WHITE BLOOD COUNT 16.9 10^3/uL (4.0-10.0)
[2019-12-19 06:24] LABS: BLOOD UREA NITROGEN 5 MG/DL (7-18); C REACTIVE PROTEIN QUANTITATIV 1.83 MG/DL (0.00-0.30); CALCIUM LEVEL 8.7 MG/DL (8.8-10.2); CARBON DIOXIDE LEVEL 26 MEQ/L (21-32); CHLORIDE LEVEL 104 MEQ/L (98-107); CREATININE FOR GFR 0.65 MG/DL (0.55-1.30); GLOMERULAR FILTRATION RATE > 60.0 (>45); GLUCOSE, FASTING 106 MG/DL (70-100); MAGNESIUM LEVEL 1.9 MG/DL (1.8-2.4); POTASSIUM SERUM 3.7 MEQ/L (3.5-5.1); SODIUM LEVEL 137 MEQ/L (136-145)
[2019-12-19 07:18] LABS: ERYTHROCYTE SEDIMENTATION RATE 50 mm/hr (0-30)
[2019-12-19] MEDS: HumaLOG INSULIN (NovoLOG) PER UNIT SC SCH ×4 (07:30→20:05)
[2019-12-19] MEDS ORDERED: BISACODYL 5 MG TAB PO SCH (09:00)
[2019-12-19] MEDS: GABAPENTIN 300 MG CAP PO SCH ×3 (09:00→20:04)
[2019-12-19] MEDS ORDERED: propofoL 200 MG/20 ML VIAL As Ordered ONE ×2 (11:47→12:50)
[2019-12-19] MEDS ORDERED: LIDOCAINE 2% 100MG/5ML SDV (FOR ANES.) As Ordered ONE (11:47)
[2019-12-19] MEDS ORDERED: fentaNYL 100 MCG/2 ML INJECTION (J3010) As Ordered ONE (11:48)
[2019-12-19] MEDS ORDERED: PHENYLephrine HCL 500 MCG/5 ML (100MCG/ML) SYRINGE (J2370) As Ordered ONE (12:33)
--- NOTE | 2019-12-19 13:12 | ROOR ---
Patient Name: Ernestine Sheth Procedure Date: 12/19/2019 11:54 AM Date of : 1950 Age: 69 Room: [facility] Gender: Female Note Status: Finalized Procedure: Upper GI endoscopy Indications: Acute post hemorrhagic anemia, Iron deficiency anemia Providers: Joe Quiroga MD Referring MD: KAREN ZAMORA JR, MD Requesting Provider: Medicines: Monitored Anesthesia Care Complications: No immediate complications. Procedure: Pre-Anesthesia Assessment: - Prior to the procedure, a History and Physical was performed, and patient medications and allergies were reviewed. The patient is competent. The risks and benefits of the procedure and the sedation options and risks were discussed with the patient. All questions were answered and informed consent was obtained. Patient identification and proposed procedure were verified by the physician, the nurse and the anesthesiologist in the procedure room. Mental Status Examination: alert and oriented. Airway Examination: normal oropharyngeal airway and neck mobility. Respiratory Examination: clear to auscultation. CV Examination: normal. Prophylactic Antibiotics: The patient does not require prophylactic antibiotics. Prior Anticoagulants: The patient has taken no previous anticoagulant or antiplatelet agents. ASA Grade Assessment: II - A patient with mild systemic disease. After reviewing the risks and benefits, the patient was deemed in satisfactory condition to undergo the procedure. The anesthesia plan was to use monitored anesthesia care (MAC). Immediately prior to administration of medications, the patient was re-assessed for adequacy to receive sedatives. The heart rate, respiratory rate, oxygen saturations, blood pressure, adequacy of pulmonary ventilation, and response to care were monitored throughout the procedure. The physical status of the patient was re-assessed after the procedure. The Endoscope was introduced through the mouth, and advanced to the second part of duodenum. The upper GI endoscopy was accomplished without difficulty. The patient tolerated the procedure well. Findings: Patchy, white plaques were found in the upper third of the esophagus, in the middle third of the esophagus and in the lower third of the esophagus. The Z-line was regular and was found in the distal esophagus. No gross lesions were noted in the entire examined stomach. The duodenal bulb, second portion of the duodenum and third portion of the duodenum were normal. Impression: - Esophageal plaques were found, doubt candidiasis. - Z-line regular, in the distal esophagus. - No gross lesions in the stomach. - Normal duodenal bulb, second portion of the duodenum and third portion of the duodenum. - No specimens collected. Recommendation: - Patient has a contact number available for emergencies. The signs and symptoms of potential delayed complications were discussed with the patient. Return to normal activities tomorrow. Written discharge instructions were provided to the patient. - Resume previous diet. - Continue present medications. - Nystatin suspension 100,000 units PO QID X 3 doses. - Follow the recommendations as per the other procedure note. - Telephone GI clinic if symptomatic. - Return to primary care physician. Joe Quiroga MD Joe Quiroga MD 12/19/2019 1:11:44 PM Electronically signed by Joe Quiroga MD Number of Addenda: 0 Note Initiated On: 12/19/2019 11:54 AM Estimated Blood Loss: Estimated blood loss was minimal.
--- NOTE | 2019-12-19 13:22 | ROOR ---
Patient Name: Ernestine Sheth Procedure Date: 12/19/2019 11:56 AM Date of : 1950 Age: 69 Room: [facility] Gender: Female Note Status: Finalized Procedure: Colonoscopy Indications: Acute post hemorrhagic anemia, Iron deficiency anemia secondary to chronic blood loss Providers: Joe Quiroga MD Referring MD: 2. Inpatient 2. Inpatient Requesting Provider: Medicines: Monitored Anesthesia Care Complications: No immediate complications. Procedure: Pre-Anesthesia Assessment: - Prior to the procedure, a History and Physical was performed, and patient medications and allergies were reviewed. The patient is competent. The risks and benefits of the procedure and the sedation options and risks were discussed with the patient. All questions were answered and informed consent was obtained. Patient identification and proposed procedure were verified by the physician, the nurse and the anesthesiologist in the procedure room. Mental Status Examination: alert and oriented. Airway Examination: normal oropharyngeal airway and neck mobility. Respiratory Examination: clear to auscultation. CV Examination: normal. Prophylactic Antibiotics: The patient does not require prophylactic antibiotics. Prior Anticoagulants: The patient has taken no previous anticoagulant or antiplatelet agents. ASA Grade Assessment: III - A patient with severe systemic disease. After reviewing the risks and benefits, the patient was deemed in satisfactory condition to undergo the procedure. The anesthesia plan was to use monitored anesthesia care (MAC). Immediately prior to administration of medications, the patient was re-assessed for adequacy to receive sedatives. The heart rate, respiratory rate, oxygen saturations, blood pressure, adequacy of pulmonary ventilation, and response to care were monitored throughout the procedure. The physical status of the patient was re-assessed after the procedure. The Colonoscope was introduced through the anus and advanced to the terminal ileum, with identification of the appendiceal orifice and IC valve. The colonoscopy was performed without difficulty. The patient tolerated the procedure well. The quality of the bowel preparation was good. The terminal ileum, ileocecal valve, appendiceal orifice, and rectum were photographed. Scope insertion time was 3 minutes. Scope withdrawal time was 11 minutes. The total duration of the procedure was 15 minutes. Findings: The perianal and digital rectal examinations were normal. The terminal ileum appeared normal. A 5 mm polyp was found in the proximal ascending colon. The polyp was sessile. The polyp was removed with a cold snare. Resection and retrieval were complete. Three sessile polyps were found in the distal ascending colon. The polyps were 3 to 5 mm in size. These polyps were removed with a cold snare. Resection and retrieval were complete. Verification of patient identification for the specimen was done by the physician and nurse using the patient's name, date and medical record number. Estimated blood loss was minimal. A single small localized angioectasia with stigmata of recent bleeding was found in the proximal ascending colon. For hemostasis, one hemostatic clip was successfully placed. There was no bleeding at the end of the procedure. Non-bleeding external and internal hemorrhoids were found during retroflexion. The hemorrhoids were large. Impression: - The examined portion of the ileum was normal. - One 5 mm polyp in the proximal ascending colon, removed with a cold snare. Resected and retrieved. - Three 3 to 5 mm polyps in the distal ascending colon, removed with a cold snare. Resected and retrieved. - A single recently bleeding colonic angioectasia. Clip was placed. - Non-bleeding external and internal hemorrhoids. Recommendation: - Patient has a contact number available for emergencies. The signs and symptoms of potential delayed complications were discussed with the patient. Return to normal activities tomorrow. Written discharge instructions were provided to the patient. - High fiber diet. - Continue present medications. - Resume aspirin today and Xarelto (rivaroxaban) today at prior doses. Refer to primary physician for further adjustment of therapy. - Await pathology results. - Check for other causes for anemia. ( peripheral smear, UIBC, iron levels, VItamin B12, folate, reticulocytes, Erythropoietin levels and hematology eval.). - Repeat colonoscopy in 3 - 5 years for surveillance based on pathology results. - Telephone GI clinic for pathology results in 1 week. - To visualize the small bowel, perform video capsule endoscopy if persistent iron deficiency anemia as elective outpatient procedure. - Return to GI clinic in [facility] (address [address], [address], [place], [facility]) in 4 -- 6 weeks. Please call GI clinic @ [phone] for apppointment date and time. - Return to primary care physician. Joe Quiroga MD Joe Quiroga MD 12/19/2019 1:21:55 PM Electronically signed by Joe Quiroga MD Number of Addenda: 0 Note Initiated On: 12/19/2019 11:56 AM Estimated Blood Loss: Estimated blood loss: none.
[2019-12-19] MEDS: FLUoxetine 10 MG CAP PO SCH (13:45)
[2019-12-19] MEDS: EZETIMIBE 10 MG TAB (ZETIA) PO SCH (13:45)
[2019-12-19] MEDS: buPROPion **SR TABLET** (ZYBAN) 150MG PO SCH (13:45)
[2019-12-19] MEDS: FLUoxetine 20 MG CAP PO SCH (13:45)
--- NOTE | 2019-12-19 15:16 | IPNPDOC ---
Text Note Date of Service The patient was seen on 12/19/19. NOTE Subjective: -doing well post scoping, no complaints at this time -had 2 units of pRBCs overnight PHYSICAL: General exam: A&Ox3, NAD HEENT: NCAT, EOMI, anicteric sclera, pale conjunctiva, moist mucous membranes Cardiac: RRR, normal S1 & S2, no murmurs Respiratory: CTAB, no w/r/r Abdomen: Normoactive bowel sounds, soft, NT, ND, noted hepatosplenomegaly or palpable masses Extremity: 2+ radial pulses, no edema or calf tenderness. Right AKA with intact stump. LLE pale, chronic edema, TTP in LLE Skin: Pale, warm, no rashes. Left lower extremity with 2 dressings that are c/d/i Msk: strength 5/5 all limbs, normal tone Neuro: normal speech, CN grossly intact, no focal deficits Psych: Normal mood, flat affect LABORATORY DATA wbc 16.9 hgb 11 K 3.7 Cr 0.65 BCx - NGTD ASSESSMENT AND PLAN: 69-year-old W with history of PVD on plavix/rivaroxaban, questionable history of PE and CAD who was incidentally found to have worsening anemia on PCP routine labs and sent to the ED, down from hgb of 9.5, 3 months ago without noted history of melena, hematochezia or hematemesis and now s/p colonoscopy without daphne evidence of bleeding with ongoing anemia workup. Acute on chronic anemia: Initially thought to be 2/2 GIB in the setting of full anticoagulation - Hemoglobin dropped from 9.5-->6.1 since 08/2019, reportedly guaiac positive at [facility] - S/P 2 units PRBC prior to transfer, with adequate rise up to 8.4 upon admission, then had 2 more units on 12/17 - Trend H&H and transfuse to goal Hgb >8 - Consulted GI, s/p colonoscopy with Dr. Quiroga on 12/18. Appreciate GI recs, will check for other causes for anemia. had sessile colonic polyps cold snare removed and sent for pathology review. - Placed on consistent carb diet - will restart ASA/rivaroxaban - checking Fe, ferritin, TIBC, Bit 12, retic count and peripheral smear Leukocytosis: Appears to be chronic -hemodynamically stable, afebrile, BCx NGTD, will monitor CAD -continue rosuvastatin/ezetimibe -restart ASA HLD: -continue rosuvastatin/ezetimibe PVD: --continue rosuvastatin/ezetimibe -continue ASA/rivaroxaban DM: -hold sitagliptin and place on SSI -consistent carb diet -FSBG AC/HS -hypoglycemia protocol Depression and anxiety: -continue home fluoxetine, mirtazapine, ativan HTN: -continue ARB, hold torsemide Chronic LE pain: -continue home nortriptyline and gabapentin -restart home norco 5/325 Q6H PRN (confirmed with Kan Fontana) DVT ppx: SCDs, hold AC Diet: consistent carb diet CODE STATUS: FULLCODE. She would like her niece to make decisions if needed. DISPOSITION:Pending anemia work up and PT evaluation. VS,Fishbone, I+O VS, Fishbone, I+O Laboratory Tests 12/18/19 20:01 12/19/19 05:41 Vital Signs Date Time Temp Pulse Resp B/P (MAP) Pulse Ox O2 Delivery O2 Flow Rate FiO2 12/19/19 13:25 89 20 163/71 (101) 95 Room Air 12/19/19 13:15 98.3 12/19/19 13:05 15 I&O- Last 24 Hours up to 6 AM 12/19/19 05:59 Intake Total 6038 ml Output Total 3250 ml Balance 2788 ml JESICA KNIGHT MD Dec 19, 2019 15:16
[2019-12-19] MEDS: MIRTAZAPINE 15 MG TAB PO SCH (20:04)
[2019-12-19] MEDS: ROSUVASTATIN 10 MG TAB (CRESTOR) PO SCH (20:04)
[2019-12-19] MEDS: NORTRIPTYLINE 10 MG CAP PO SCH (20:04)
[2019-12-20] VITALS: BP 158/68
[2019-12-20 04:00] VITALS: BP 139/79
[2019-12-20 06:55] LABS: BASO # 0.1 10^3/uL (0.0-0.2); EOS # 0.1 10^3/uL (0.0-0.5); HEMATOCRIT 34.5 % (36.0-47.0); HEMOGLOBIN 10.5 g/dl (12.0-15.5); LYMPH # 2.6 10^3/uL (1.5-5.0); LYMPH % 18.6 % (24.0-44.0); MEAN CORPUSCULAR HEMOGLOBIN 21.8 pg (27.0-33.0); MEAN CORPUSCULAR HGB CONC 30.4 g/dl (32.0-36.5); MEAN CORPUSCULAR VOLUME 71.6 fl (80.0-96.0); MONO # 0.7 10^3/uL (0.0-0.8); MONO % 5.2 % (0.0-5.0); NEUTROPHILS # 10.1 10^3/uL (1.5-8.5); NEUTROPHILS % 73.4 % (36.0-66.0); PLATELET COUNT, AUTOMATED 605 10^3/uL (150-450); RED BLOOD COUNT 4.82 10^6/uL (4.00-5.40); WHITE BLOOD COUNT 13.7 10^3/uL (4.0-10.0)
[2019-12-20 07:27] LABS: BLOOD UREA NITROGEN 9 MG/DL (7-18); CALCIUM LEVEL 8.6 MG/DL (8.8-10.2); CARBON DIOXIDE LEVEL 26 MEQ/L (21-32); CHLORIDE LEVEL 110 MEQ/L (98-107); CREATININE FOR GFR 0.72 MG/DL (0.55-1.30); FERRITIN 8 NG/ML (8-252); GLOMERULAR FILTRATION RATE > 60.0 (>45); GLUCOSE, FASTING 140 MG/DL (70-100); IRON (FE) 20 UG/DL (50-170); MAGNESIUM LEVEL 2.2 MG/DL (1.8-2.4); PERCENT SATURATION 4.7 % (13.2-45.0); POTASSIUM SERUM 3.8 MEQ/L (3.5-5.1); SODIUM LEVEL 142 MEQ/L (136-145); TOTAL IRON BINDING CAPACITY 425 UG/DL (250-450)
[2019-12-20] MEDS: HumaLOG INSULIN (NovoLOG) PER UNIT SC SCH ×4 (07:30→20:11)
[2019-12-20 07:51] VITALS: BP 182/68
[2019-12-20] MEDS: buPROPion **SR TABLET** (ZYBAN) 150MG PO SCH (09:18)
[2019-12-20] MEDS: GABAPENTIN 300 MG CAP PO SCH ×3 (09:18→20:15)
[2019-12-20] MEDS: OMEPRAZOLE 20 MG CAP PO SCH (09:18)
[2019-12-20] MEDS: ASPIRIN 325 MG TAB PO SCH (09:18)
[2019-12-20] MEDS: EZETIMIBE 10 MG TAB (ZETIA) PO SCH (09:18)
[2019-12-20] MEDS: FLUoxetine 20 MG CAP PO SCH (09:18)
[2019-12-20] MEDS: RIVAROXABAN 20 MG TAB (XARELTO) PO SCH (09:18)
[2019-12-20] MEDS: OLMESARTAN MEDOXOMIL 20 MG TAB (BENICAR) PO SCH (09:18)
[2019-12-20] MEDS: FLUoxetine 10 MG CAP PO SCH (09:19)
[2019-12-20] MEDS: NORCO, ANEXSIA 5/325MG TABLET (HYDROcodone/ACETAMINOPHEN) PO PRN (09:20)
[2019-12-20] MEDS: TORSEMIDE 100 MG TAB PO SCH (11:03)
[2019-12-20] MEDS: IRON SUCROSE 200 MG in NS 100 ML OVER 1 HR IV SCH (11:04)
--- NOTE | 2019-12-20 11:40 | IPNPDOC ---
Text Note Date of Service The patient was seen on 12/20/19. NOTE Subjective: -No acute events overnight PHYSICAL: General exam: A&Ox3, NAD HEENT: NCAT, EOMI, anicteric sclera, pale conjunctiva, moist mucous membranes Cardiac: RRR, normal S1 & S2, no murmurs Respiratory: CTAB, no w/r/r Abdomen: Normoactive bowel sounds, soft, NT, ND, noted hepatosplenomegaly or palpable masses Extremity: 2+ radial pulses, no edema or calf tenderness. Right AKA with intact stump. LLE pale, chronic edema, baseline TTP in LLE Skin: Pale, warm, no rashes. Left lower extremity with 2 dressings that are c/d/i Msk: strength 5/5 all limbs, normal tone Neuro: normal speech, CN grossly intact, no focal deficits Psych: Normal mood, flat affect LABORATORY DATA wbc 13.7 hgb 10.5 K 3.8 Cr 0.72 BCx - NGTD Fe 20 Ferritin 8 TIBC 425 pending smear and Vit B12 ASSESSMENT AND PLAN: 69-year-old W with history of PVD on plavix/rivaroxaban, questionable history of PE and CAD who was incidentally found to have worsening anemia on PCP routine labs and sent to the ED, down from hgb of 9.5, 3 months ago without noted history of melena, hematochezia or hematemesis and now s/p colonoscopy without daphne evidence of bleeding and found to be profoundly iron deficient. Acute on chronic anemia: Initially thought to be 2/2 GIB in the setting of full anticoagulation but found to be profoundly iron deficient with no evidence of ongoing GI bleeding at this time. - Hemoglobin dropped from 9.5-->6.1 since 08/2019, reportedly guaiac positive at [facility] - S/P total 4U of pRBCs during this encounter - Trend H&H and transfuse to goal Hgb >8 - Consulted GI, s/p colonoscopy with Dr. Quiroga on 12/18. Appreciate GI recs, will check for other causes for anemia. had sessile colonic polyps cold snare removed and sent for pathology review. - Placed on consistent carb diet - continue ASA/rivaroxaban - low Fe and ferritin --> will give IV iron sucrose 200mg daily, day #1, and switch her to daily PO 325mg at discharge - follow up smear and Vit B12 Leukocytosis: Appears to be chronic -hemodynamically stable, afebrile, BCx NGTD, will monitor CAD -continue rosuvastatin/ezetimibe -continue ASA HLD: -continue rosuvastatin/ezetimibe PVD: --continue rosuvastatin/ezetimibe -continue ASA/rivaroxaban DM: -continue holding sitagliptin while on SSI -consistent carb diet -FSBG AC/HS -hypoglycemia protocol Depression and anxiety: -continue home fluoxetine, mirtazapine, ativan HTN: -continue ARB -continue home torsemide Chronic LE pain: -continue home nortriptyline and gabapentin -continue home norco 5/325 Q6H PRN (confirmed with Kan Fontana) DVT ppx: SCDs, hold AC Diet: consistent carb diet CODE STATUS: FULLCODE. She would like her niece to make decisions if needed. DISPOSITION:getting IV iron for profound Fe deficiency anemia and ongoing PT VS,Fishbone, I+O VS, Fishbone, I+O Laboratory Tests 12/20/19 06:24 Vital Signs Date Time Temp Pulse Resp B/P (MAP) Pulse Ox O2 Delivery O2 Flow Rate FiO2 12/20/19 09:20 16 Room Air 12/20/19 09:18 182/68 12/20/19 07:51 98.6 104 95 12/19/19 13:05 15 I&O- Last 24 Hours up to 6 AM 12/20/19 06:00 Intake Total 1080 ml Output Total 550 ml Balance 530 ml JESICA KNIGHT MD Dec 20, 2019 09:31
[2019-12-20 12:04] VITALS: BP 138/59
[2019-12-20 16:00] VITALS: BP 131/60
[2019-12-20 20:00] VITALS: BP 163/72
[2019-12-20] MEDS: NORTRIPTYLINE 10 MG CAP PO SCH (20:15)
[2019-12-20] MEDS: ROSUVASTATIN 10 MG TAB (CRESTOR) PO SCH (20:15)
[2019-12-20] MEDS: MIRTAZAPINE 15 MG TAB PO SCH (20:16)
[2019-12-21] VITALS: BP 153/67
[2019-12-21 04:00] VITALS: BP 166/70
[2019-12-21 05:47] LABS: BASO # 0.1 10^3/uL (0.0-0.2); BASO % 0.7 % (0.0-1.0); EOS # 0.2 10^3/uL (0.0-0.5); HEMATOCRIT 38.4 % (36.0-47.0); HEMOGLOBIN 11.2 g/dl (12.0-15.5); LYMPH # 2.1 10^3/uL (1.5-5.0); LYMPH % 10.7 % (24.0-44.0); MEAN CORPUSCULAR HEMOGLOBIN 21.5 pg (27.0-33.0); MEAN CORPUSCULAR HGB CONC 29.2 g/dl (32.0-36.5); MEAN CORPUSCULAR VOLUME 73.6 fl (80.0-96.0); MONO # 1.1 10^3/uL (0.0-0.8); MONO % 5.6 % (0.0-5.0); NEUTROPHILS # 16.2 10^3/uL (1.5-8.5); NEUTROPHILS % 81.5 % (36.0-66.0); PLATELET COUNT, AUTOMATED 611 10^3/uL (150-450); RED BLOOD COUNT 5.22 10^6/uL (4.00-5.40); WHITE BLOOD COUNT 19.9 10^3/uL (4.0-10.0)
[2019-12-21 06:01] LABS: BLOOD UREA NITROGEN 15 MG/DL (7-18); CALCIUM LEVEL 8.8 MG/DL (8.8-10.2); CARBON DIOXIDE LEVEL 28 MEQ/L (21-32); CHLORIDE LEVEL 104 MEQ/L (98-107); GLOMERULAR FILTRATION RATE > 60.0 (>45); GLUCOSE, FASTING 149 MG/DL (70-100); MAGNESIUM LEVEL 1.9 MG/DL (1.8-2.4); POTASSIUM SERUM 3.2 MEQ/L (3.5-5.1); SODIUM LEVEL 139 MEQ/L (136-145)
[2019-12-21 07:35] VITALS: BP 129/58
[2019-12-21] MEDS: ASPIRIN 325 MG TAB PO SCH (08:38)
[2019-12-21] MEDS: EZETIMIBE 10 MG TAB (ZETIA) PO SCH (08:38)
[2019-12-21] MEDS: HumaLOG INSULIN (NovoLOG) PER UNIT SC SCH ×4 (08:38→20:02)
[2019-12-21] MEDS: GABAPENTIN 300 MG CAP PO SCH ×3 (08:38→20:02)
[2019-12-21] MEDS: FLUoxetine 20 MG CAP PO SCH (08:38)
[2019-12-21] MEDS: RIVAROXABAN 20 MG TAB (XARELTO) PO SCH (08:39)
[2019-12-21] MEDS: buPROPion **SR TABLET** (ZYBAN) 150MG PO SCH (08:39)
[2019-12-21] MEDS: TORSEMIDE 100 MG TAB PO SCH (08:39)
[2019-12-21] MEDS: OMEPRAZOLE 20 MG CAP PO SCH (08:39)
[2019-12-21] MEDS: FLUoxetine 10 MG CAP PO SCH (08:39)
[2019-12-21] MEDS: OLMESARTAN MEDOXOMIL 20 MG TAB (BENICAR) PO SCH (08:40)
[2019-12-21] MEDS ORDERED: IRON SUCROSE 100MG 5ML VIAL (J1756 PER 1MG) IV SCH (09:00)
[2019-12-21 11:33] VITALS: BP 132/58
--- NOTE | 2019-12-21 12:28 | IPNPDOC ---
Text Note Date of Service The patient was seen on 12/21/19. NOTE Subjective: -No acute events overnight PHYSICAL: General exam: A&Ox3, NAD HEENT: NCAT, EOMI, anicteric sclera, pale conjunctiva, moist mucous membranes Cardiac: RRR, normal S1 & S2, no murmurs Respiratory: CTAB, no w/r/r Abdomen: Normoactive bowel sounds, soft, NT, ND, noted hepatosplenomegaly or palpable masses Extremity: 2+ radial pulses, no edema or calf tenderness. Right AKA with intact stump. LLE pale, chronic edema, baseline TTP in LLE Skin: Pale, warm, no rashes. Left lower extremity with 2 dressings that are c/d/i Msk: strength 5/5 all limbs, normal tone Neuro: normal speech, CN grossly intact, no focal deficits Psych: Normal mood, flat affect LABORATORY DATA wbc 19.9 hgb 11.2 Cr 0.9 BCx - NGTD Fe 20 Ferritin 8 TIBC 425 pending smear and Vit B12 ASSESSMENT AND PLAN: 69-year-old W with history of PVD on plavix/rivaroxaban, questionable history of PE and CAD who was incidentally found to have worsening anemia on PCP routine labs and sent to the ED, down from hgb of 9.5, 3 months ago without noted history of melena, hematochezia or hematemesis and now s/p colonoscopy without daphne evidence of bleeding and found to be profoundly iron deficient. Acute on chronic anemia: Initially thought to be 2/2 GIB in the setting of full anticoagulation but found to be profoundly iron deficient with no evidence of ongoing GI bleeding at this time. - Hemoglobin dropped from 9.5-->6.1 since 08/2019, reportedly guaiac positive at [facility] - S/P total 4U of pRBCs during this encounter - Trend H&H and transfuse to goal Hgb >8 - Consulted GI, s/p colonoscopy with Dr. Quiroga on 12/18. Appreciate GI recs, will check for other causes for anemia. had sessile colonic polyps cold snare removed and sent for pathology review. - Placed on consistent carb diet - continue ASA/rivaroxaban - low Fe and ferritin --> will give IV iron sucrose 200mg daily, day #2, and switch her to daily PO 325mg at discharge - follow up smear and Vit B12 Leukocytosis: Appears to be chronic -hemodynamically stable, afebrile, BCx NGTD, will monitor CAD -continue rosuvastatin/ezetimibe -continue ASA HLD: -continue rosuvastatin/ezetimibe PVD: --continue rosuvastatin/ezetimibe -continue ASA/rivaroxaban DM: -continue holding sitagliptin while on SSI -consistent carb diet -FSBG AC/HS -hypoglycemia protocol Depression and anxiety: -continue home fluoxetine, mirtazapine, ativan HTN: -continue ARB -continue home torsemide Chronic LE pain: -continue home nortriptyline and gabapentin -continue home norco 5/325 Q6H PRN (confirmed with Kan Fontana) DVT ppx: SCDs, hold AC Diet: consistent carb diet CODE STATUS: FULLCODE. She would like her niece to make decisions if needed. DISPOSITION:getting IV iron for profound Fe deficiency anemia and ongoing PT VS,Fishbone, I+O VS, Fishbone, I+O Laboratory Tests 12/21/19 05:15 Vital Signs Date Time Temp Pulse Resp B/P (MAP) Pulse Ox O2 Delivery O2 Flow Rate FiO2 12/21/19 11:33 96.8 94 18 132/58 (82) 94 Room Air 12/19/19 13:05 15 I&O- Last 24 Hours up to 6 AM 12/21/19 06:00 Intake Total 950 ml Output Total 1050 ml Balance -100 ml JESICA KNIGHT MD Dec 21, 2019 12:28
[2019-12-21] MEDS ORDERED: POTASSIUM CHLORIDE 10 MEQ SR TABLET PO ONE (13:00)
[2019-12-21] MEDS: IRON SUCROSE 200 MG in NS 100 ML OVER 1 HR IV SCH (13:22)
[2019-12-21 15:44] VITALS: BP 123/60
[2019-12-21 20:00] VITALS: BP 153/70
[2019-12-21] MEDS: MIRTAZAPINE 15 MG TAB PO SCH (20:00)
[2019-12-21] MEDS: NORTRIPTYLINE 10 MG CAP PO SCH (20:01)
[2019-12-21] MEDS: NORCO, ANEXSIA 5/325MG TABLET (HYDROcodone/ACETAMINOPHEN) PO PRN (20:01)
[2019-12-21] MEDS: ROSUVASTATIN 10 MG TAB (CRESTOR) PO SCH (20:01)
[2019-12-22] VITALS (8 sets, daily range): BP systolic 115–169; BP diastolic 56–79
[2019-12-22] MEDS: NORCO, ANEXSIA 5/325MG TABLET (HYDROcodone/ACETAMINOPHEN) PO PRN (02:26)
[2019-12-22 06:39] LABS: BASO # 0.1 10^3/uL (0.0-0.2); BASO % 0.9 % (0.0-1.0); EOS # 0.3 10^3/uL (0.0-0.5); EOS % 1.9 % (0.0-3.0); HEMATOCRIT 39.1 % (36.0-47.0); HEMOGLOBIN 11.4 g/dl (12.0-15.5); LYMPH # 3.5 10^3/uL (1.5-5.0); LYMPH % 25.9 % (24.0-44.0); MEAN CORPUSCULAR HEMOGLOBIN 21.8 pg (27.0-33.0); MEAN CORPUSCULAR HGB CONC 29.2 g/dl (32.0-36.5); MEAN CORPUSCULAR VOLUME 74.6 fl (80.0-96.0); MONO # 0.9 10^3/uL (0.0-0.8); MONO % 6.9 % (0.0-5.0); NEUTROPHILS # 8.6 10^3/uL (1.5-8.5); PLATELET COUNT, AUTOMATED 580 10^3/uL (150-450); RED BLOOD COUNT 5.24 10^6/uL (4.00-5.40); WHITE BLOOD COUNT 13.4 10^3/uL (4.0-10.0)
[2019-12-22 07:07] LABS: BLOOD UREA NITROGEN 15 MG/DL (7-18); CALCIUM LEVEL 8.9 MG/DL (8.8-10.2); CARBON DIOXIDE LEVEL 30 MEQ/L (21-32); CHLORIDE LEVEL 105 MEQ/L (98-107); GLOMERULAR FILTRATION RATE > 60.0 (>45); GLUCOSE, FASTING 116 MG/DL (70-100); SODIUM LEVEL 141 MEQ/L (136-145)
[2019-12-22] MEDS: HumaLOG INSULIN (NovoLOG) PER UNIT SC SCH ×2 (07:49→12:36)
[2019-12-22] MEDS: ASPIRIN 325 MG TAB PO SCH (07:49)
[2019-12-22] MEDS: FLUoxetine 10 MG CAP PO SCH (07:50)
[2019-12-22] MEDS: OMEPRAZOLE 20 MG CAP PO SCH (07:50)
[2019-12-22] MEDS: GABAPENTIN 300 MG CAP PO SCH ×2 (07:50→15:44)
[2019-12-22] MEDS: FLUoxetine 20 MG CAP PO SCH (07:50)
[2019-12-22] MEDS: buPROPion **SR TABLET** (ZYBAN) 150MG PO SCH (07:51)
[2019-12-22] MEDS: EZETIMIBE 10 MG TAB (ZETIA) PO SCH (07:51)
[2019-12-22] MEDS: TORSEMIDE 100 MG TAB PO SCH (07:51)
[2019-12-22] MEDS: RIVAROXABAN 20 MG TAB (XARELTO) PO SCH (07:51)
[2019-12-22] MEDS: OLMESARTAN MEDOXOMIL 20 MG TAB (BENICAR) PO SCH (07:51)
[2019-12-22] MEDS: ACETAMINOPHEN TAB 650MG DOSE (2X325MG) PO PRN (07:52)
[2019-12-22] MEDS: NYSTATIN 500,000 U/5 ML SUSP UDC PO SCH ×2 (09:00→13:08)
[2019-12-22] MEDS ORDERED: IRON1TAB2 PO (09:09)
[2019-12-22 10:10] LABS: VITAMIN B12 LEVEL 1765 PG/ML (247-911)
[2019-12-22] MEDS: IRON SUCROSE 200 MG in NS 100 ML OVER 1 HR IV SCH (12:37)
[2019-12-22] MEDS ORDERED: NYST50SS PO (13:11)
--- NOTE | 2019-12-22 13:21 | DS.PDOC ---
Discharge Summary General Date of Admission Dec 18, 2019 at 02:45 Date of Discharge 12/22/2019 Attending Physician: JESICA KNIGHT MD Specialist/Consultants Involve: MARI QUIROGA MD Discharge Summary PROCEDURES PERFORMED DURING STAY: EGD/COLONOSCOPY on 12/[address] Quiroga ADMITTING DIAGNOSES: 1. Anemia DISCHARGE DIAGNOSES: 1. Iron deficiency anemia 2. HTN 3. HLD 4. DM type II 5. PVD s/p R AKA COMPLICATIONS/CHIEF COMPLAINT: Symptomatic Anemia. HISTORY OF PRESENT ILLNESS: 69-year-old W patient with HTN, HLD, DM type II, PVD s/p femoropopliteal bypass many years ago, currently on aspirin and Xarelto for the past 1-2 years, right AKA, 4 years ago for gangrene, left carotid endarterectomy with 3 stents, who was admitted from [facility] after PCP recommended her presentation for worsening anemia on routine labs. At presentation she denied any active GI symptoms or overt external bleeding reporting her last colonoscopy to have been at least 10 years ago and was notable for polyps that were removed, while also denying NSAID use or prior EGD. She was transferred to [facility] for GI evaluation. HOSPITAL COURSE: At [place] hgb was 6.1 and guaiac was reportedly positive and she was transfused 2u. On arrival to [facility] Hgb had uptrended to 8.4 and she received 2 more units on 12/17 with a sustained response.GI was consulted and she had an EGD/colonoscopy with Dr. Quiroga on 12/18, that was notable for sessile colonic polyps cold s nare removed and sent for pathology review without daphne evidence of bleeding. Follow up anemia workup showed her to be profoundly iron deficient with a ferritin of 8 and she received 3 doses of iron sucrose and is now being discharged home on daily iron 325mg, with recommendation to repeat anemia labs in 1 month. Of note, on EGD, she was found to have esophageal plaques for which she is now being discharged home with 3d of nystatin per Dr. Quiroga's recommendation. She was evaluated by physical therapy and was determined safe for home discharge. DISCHARGE MEDICATIONS: Please see below. ALLERGIES: Please see below. PHYSICAL EXAMINATION ON DISCHARGE: VITAL SIGNS: Please see below. General exam: A&Ox3, NAD HEENT: NCAT, EOMI, anicteric sclera, pale conjunctiva, moist mucous membranes Cardiac: RRR, normal S1 & S2, no murmurs Respiratory: CTAB, no w/r/r Abdomen: Normoactive bowel sounds, soft, NT, ND, noted hepatosplenomegaly or palpable masses Extremity: 2+ radial pulses, no edema or calf tenderness. Right AKA with intact stump. LLE pale, chronic edema, baseline TTP in LLE Skin: Pale, warm, no rashes. Left lower extremity with 2 dressings that are c/d/i Msk: strength 5/5 all limbs, normal tone Neuro: normal speech, CN grossly intact, no focal deficits Psych: Normal mood, flat affect LABORATORY DATA: Please see below. IMAGING: EGD: Patchy, white plaques were found in the upper third of the esophagus, in the middle third of the esophagus and in the lower third of the esophagus. The Z- line was regular and was found in the distal esophagus. No gross lesions were noted in the entire examined stomach. The duodenal bulb, second portion of the duodenum and third portion of the duodenum were normal. Impression: - Esophageal plaques were found, doubt candidiasis. - Z-line regular, in the distal esophagus. - No gross lesions in the stomach. - Normal duodenal bulb, second portion of the duodenum and third portion of the duodenum. - No specimens collected. Recommendation:- Patient has a contact number available for emergencies. The signs and symptoms of potential delayed complications were discussed with the patient. Return to normal activities tomorrow. Written discharge instructions were provided to the patient. - Resume previous diet. - Continue present medications. - Nystatin suspension 100,000 units PO QID X 3 doses. - Follow the recommendations as per the other procedure Colonoscopy: Impression: - The examined portion of the ileum was normal. - One 5 mm polyp in the proximal ascending colon, removed with a cold snare. Resected and retrieved. - Three 3 to 5 mm polyps in the distal ascending colon, removed with a cold snare. Resected and retrieved. - A single recently bleeding colonic angioectasia. Clip was placed. - Non-bleeding external and internal hemorrhoids. Recommendation:- Patient has a contact number available for emergencies. The signs and symptoms of potential delayed complications were discussed with the patient. Return to normal activities tomorrow. Written discharge instructions were provided to the patient. - High fiber diet. - Continue present medications. - Resume aspirin today and Xarelto (rivaroxaban) today at prior doses. Refer to primary physician for further adjustment of therapy. - Await pathology results. - Check for other causes for anemia. ( peripheral smear, UIBC, iron levels, VItamin B12, folate, reticulocytes, Erythropoietin levels and hematology eval.). - Repeat colonoscopy in 3 - 5 years for surveillance based on pathology results. - Telephone GI clinic for pathology results in 1 week. - To visualize the small bowel, perform video capsule endoscopy if persistent iron deficiency anemia as elective outpatient procedure. - Return to GI clinic in [facility] (address [address], [address], [place], [facility]) in 4 -- 6 weeks. Please call GI clinic @ [phone] for apppointment date and time. - Return to primary care physician. PROGNOSIS: Good ACTIVITY: As tolerated DIET: Consistent carb DISCHARGE PLAN: Home with PO iron supplementation, close PCP follow up within 1- 2 weeks, GI follow up in 4-6 weeks DISPOSITION: Home DISCHARGE INSTRUCTIONS: 1. Home with PO iron supplementation, close PCP follow up within 1-2 weeks, GI follow up in 4-6 weeks ITEMS TO FOLLOWUP ON ON OUTPATIENT: 1. Iron deficiency anemia 2. GI follow up for sessile polyps pathology results DISCHARGE CONDITION: Stable TIME SPENT ON DISCHARGE: 47 minutes. Vital Signs/I&Os Vital Signs Date Time Temp Pulse Resp B/P (MAP) Pulse Ox O2 Delivery O2 Flow Rate FiO2 12/22/19 08:00 96.6 89 18 162/72 (102) 95 Room Air 12/19/19 13:05 15 I&O- Last 24 Hours up to 6 AM 12/22/19 05:59 Intake Total 750 ml Output Total 1150 ml Balance -400 ml Laboratory Data Labs 24H Laboratory Tests 2 12/21/19 13:03: Bedside Glucose (Misc Panel) 175H 12/21/19 16:47: Bedside Glucose (Misc Panel) 91 12/21/19 19:56: Bedside Glucose (Misc Panel) 174H 12/22/19 05:52: Immature Granulocyte % (Auto) 0.4, Neutrophils (%) (Auto) 64.0, Lymphocytes (%) (Auto) 25.9, Monocytes (%) (Auto) 6.9H, Eosinophils (%) (Auto) 1.9, Basophils (%) (Auto) 0.9, Neutrophils # (Auto) 8.6H, Lymphocytes # (Auto) 3.5, Monocytes # (Auto) 0.9H, Eosinophils # (Auto) 0.3, Basophils # (Auto) 0.1, Nucleated Red Blood Cells % (auto) 0.0, Anion Gap 6L, Glomerular Filtration Rate > 60.0, Calcium Level 8.9, Magnesium Level 2.0 CBC/BMP Laboratory Tests 12/22/19 05:52 FSBS Laboratory Tests Test 12/21/19 13:03 12/21/19 16:47 12/21/19 19:56 Range/Units Bedside Glucose (Misc Panel) 175 91 174 80-115 MG/DL Microbiology Microbiology 12/18/19 Stool Occult Blood (BEATRIZ) - Final, Complete 12/18/19 Blood Culture - Preliminary, Resulted No Growth after 72 hours. All specime... 12/18/19 Blood Culture - Preliminary, Resulted No Growth after 72 hours. All specime... Discharge Medications Scheduled Aspirin (Aspirin) 325 Mg Tablet, 325 MG PO DAILY, (Reported) Bupropion HCl (Bupropion HCl Sr) 150 Mg Tab.er.12h, 150 MG PO DAILY, (Reported) Ezetimibe (Zetia) 10 Mg Tablet, 10 MG PO DAILY, (Reported) Ferrous Sulfate (Iron) 325 Mg Tablet, 1 TAB PO DAILY Fluoxetine HCl (Fluoxetine HCl) 20 Mg Tablet, 30 MG PO DAILY, (Reported) Gabapentin (Gabapentin) 600 Mg Tablet, 600 MG PO TID, (Reported) Melatonin (Melatonin) 10 Mg Tab.mphase, 15 MG PO QHS, (Reported) Mirtazapine (Mirtazapine) 45 Mg Tab.rapdis, 45 MG PO QHS, (Reported) Nortriptyline HCl (Nortriptyline HCl) 10 Mg Capsule, 10 MG PO QHS, (Reported) Nystatin (Nystatin Oral Susp) 100,000 Unit/1 Ml Oral.susp, 5 ML PO QID Olmesartan Medoxomil (Olmesartan Medoxomil) 20 Mg Tablet, 20 MG PO DAILY, (Reported) Omeprazole (Omeprazole) 20 Mg Capsule.dr, 20 MG PO DAILY, (Reported) Rivaroxaban (Xarelto) 20 Mg Tablet, 20 MG PO DAILY, (Reported) Rosuvastatin Calcium (Rosuvastatin Calcium) 5 Mg Tablet, 5 MG PO QHS, (Reported) Sitagliptin Phosphate (Januvia) 100 Mg Tablet, 100 MG PO DAILY, (Reported) Torsemide (Torsemide) 100 Mg Tablet, 100 MG PO DAILY, (Reported) Scheduled PRN Lorazepam (Lorazepam) 0.5 Mg Tablet, 0.5 MG PO DAILY PRN for ANXIETY, (Reported) Allergies Coded Allergies: Penicillins (Verified Allergy, Intermediate, HIVES, 12/18/19) pregabalin (Verified Allergy, Unknown, SPASMS, 12/18/19) morphine (Verified Adverse Reaction, Intermediate, HALLUCINATIONS, 12/18/19) codeine (Verified Adverse Reaction, Mild, NAUSEA, 12/18/19) JESICA KNIGHT MD Dec 22, 2019 09:06
== END 2019-12-22 16:03 | disposition home health service (06) | DRG 812 ==
LOC: EEVIPCON 02:45 → M PCU 02:45
PROVIDERS: ADMIT Internal Medicine; ATTEND Internal Medicine
PROC: 30233N1 Transfusion of Nonautologous Red Blood Cells into Peripheral Vein, Percutaneous Approach (ICD-10-PCS; 2019-12-18)
PROC: 0DBK8ZX Excision of Ascending Colon, Via Natural or Artificial Opening Endoscopic, Diagnostic (ICD-10-PCS; 2019-12-19)
PROC: 0W3P8ZZ Control Bleeding in Gastrointestinal Tract, Via Natural or Artificial Opening Endoscopic (ICD-10-PCS; 2019-12-19)
PROC: 0DJ08ZZ Inspection of Upper Intestinal Tract, Via Natural or Artificial Opening Endoscopic (ICD-10-PCS; principal; 2019-12-19 11:00)
DX: D50.9 Iron deficiency anemia, unspecified (principal); K55.20 Angiodysplasia of colon without hemorrhage; F32.9 Major depressive disorder, single episode, unspecified; G47.00 Insomnia, unspecified; I10 Essential (primary) hypertension; M81.0 Age-related osteoporosis without current pathological fracture; E11.42 Type 2 diabetes mellitus with diabetic polyneuropathy; E11.51 Type 2 diabetes mellitus with diabetic peripheral angiopathy without gangrene; K22.8 Other specified diseases of esophagus; D12.2 Benign neoplasm of ascending colon; F17.200 Nicotine dependence, unspecified, uncomplicated; I65.21 Occlusion and stenosis of right carotid artery; K64.4 Residual hemorrhoidal skin tags; K64.8 Other hemorrhoids; D72.829 Elevated white blood cell count, unspecified; I25.10 Atherosclerotic heart disease of native coronary artery without angina pectoris; Z98.49 Cataract extraction status, unspecified eye; Z95.5 Presence of coronary angioplasty implant and graft; Z95.820 Peripheral vascular angioplasty status with implants and grafts; Z79.01 Long term (current) use of anticoagulants; Z79.899 Other long term (current) drug therapy; Z79.82 Long term (current) use of aspirin; Z88.0 Allergy status to penicillin; Z88.5 Allergy status to narcotic agent; Z88.8 Allergy status to other drugs, medicaments and biological substances; Z86.14 Personal history of Methicillin resistant Staphylococcus aureus infection; Z89.611 Acquired absence of right leg above knee; Z86.73 Personal history of transient ischemic attack (TIA), and cerebral infarction without residual deficits

== ENCOUNTER → 2020-02-20 | Outpatient (CLI) | payer MEDICARE, MEDICAID ==
[~2020-02-20] MED LIST changes: +ASPI-1 PO; +BUPR15TASR PO; +FLUO20TA28 PO; +GABA600T4 PO; +HYDR-3713 PO; +IRON1TAB2 PO; +JANU100T PO; +LORA0.5T5 PO; +MELA10TA PO; +MIRT1TAB17 PO; +NORT10CA2 PO; +NYST50SS PO; +OLME20TA2 PO; +OMEP-218 PO; +ROSU5TAB5 PO; +TORS100T PO; +XARE20TA PO; +ZETI10TA16 PO
--- NOTE | 2020-02-20 15:56 | REP ---
The exam is performed on the left side only due to chronic venous insufficiency. Patient has had previous surgeries, the details are unknown to me. Ankle-brachial index was not obtained. PEAK SYSTOLIC VELOCITY PHASICITY CLINICAL PROGRAM COORDINATOR 100.9 cm/s Monophasic Profunda 138.8 cm/s Monophasic SFA proximal Occluded SFA mid Occluded SFA distal 30.4 cm/s Monophasic Popliteal 73.1 cm/s Monophasic YOLANDA proximal 46.4 cm/s Monophasic Tibioperoneal trunk No flow seen DEFECT CUTTER proximal No flow seen DEFECT CUTTER distal Occluded YOLANDA distal 58.3 cm/s Monophasic The technologist has made note in the Comments section of the tech worksheet, examination is extremely limited due to the patient's body habitus and severe plaque formation noted. Electronically Signed by Tom Guveara DO 02/20/2020 04:34 P
== END ==
LOC: M RAD 11:43
PROVIDERS: ATTEND Physician Assistant
DX: I87.312 Chronic venous hypertension (idiopathic) with ulcer of left lower extremity (principal); L97.822 Non-pressure chronic ulcer of other part of left lower leg with fat layer exposed; I70.249 Atherosclerosis of native arteries of left leg with ulceration of unspecified site

== ENCOUNTER → 2020-04-14 | Outpatient (CLI) | payer MEDICARE, MEDICAID | LOC: M PT 14:30 | PROVIDERS: ATTEND Internal Medicine | DX: Z89.611 Acquired absence of right leg above knee (principal) ==

== ENCOUNTER → 2020-05-18 | Outpatient (POV) | payer MEDICARE, MEDICAID ==
--- NOTE | 2020-05-19 14:17 | IRCOV ---
[facility] IR Consult Office Visit IR Consult Office Visit DATE: May 18, 2020 Patient agreed to this telephone consultation. I spent 30 minutes reviewing the chart, patient's imaging and talking to the patient. REASON FOR CONSULTATION/CHIEF COMPLAINT: Nonhealing left lower extremity ulcers HISTORY OF PRESENT ILLNESS: 69-year-old female with hypertension, hyperlipidemia and diabetes, ex-smoker referred for nonhealing left lower extremity ulcers. Patient states the ulcers have been present for greater than 5 years. The ulcer that's below the knee on the medial aspect is almost healed however the one on the outer side of the ankle is nonhealing. Patient states she has pain at rest in the left lower extremity. Her right leg was amputated above the knee 5 years ago, due to infection post bypass. She states she has bilateral lower extremity cadaver vein bypass grafts. She last saw Dr. Gillette in [place] her vascular surgeon, over a year ago. She is not able to make it to see him anymore due to transportation issues. She denies any color changes in her left leg. She sleeps in a recliner. She is not very ambulatory. Her leg does swell during the day and goes down at night. She's had prior stroke from which she has a left foot drop and left leg weakness. She denies prior [place]. No chest pain, shortness of breath, orthopnea or paroxysmal nocturnal dyspnea. She reports smoking 10 cigarettes a day. She is on aspirin and Xarelto. ALLERGIES: Please see below. HOME MEDICATIONS: Please see below. PAST MEDICAL HISTORY: Diabetes Stroke PAST SURGICAL HISTORY: Hysterectomy Cataract removal Right above-knee amputation Lower extremity cadaver vein bypass graft FAMILY HISTORY: Noncontributory SOCIAL HISTORY: Smokes 10 a day. Denies alcohol or drugs. REVIEW OF SYSTEMS: Otherwise negative PHYSICAL EXAMINATION: No video on patient side. LABORATORY DATA: 12/22/2019 hemoglobin 11.4 hematocrit 39.1 WBC 13.4 platelets 580 sodium 141 potassium 4.0 BUN 15 creatinine 0.8 INR 1.46 Imaging: I personally reviewed the left lower extremity arterial ultrasound performed January 2020. The common femoral, SFA and profounda show monophasic waveforms. Monophasic waveform in the popliteal artery. Monophasic waveform in the anterior tibial artery. No bypass graft seen. I personally reviewed the CTA from 2016. At that time there was no bypass graft in the left lower extremity. She has significant inflow disease with atherosclerotic calcification and stenosis in the common iliac and external iliac artery. Her proximal and mid SFA was patent however her distal SFA and popliteal artery are completely occluded with distal reconstitution of 3 vessel runoff to the foot. Right femoropopliteal bypass graft was occluded. ASSESSMENT/PLAN: 69-year-old female arteriopath status post right lower extremity above-knee amputation, presents with nonhealing left lower extremity ulcers and rest pain. This is associated with distal SFA and popliteal occlusion on CTA in 2017 and poor vascularity on recent ultrasound. She continues to smoke and is classified as high risk Marsha 5 for limb loss. I discussed options of a diagnostic and interventional angiogram to look at inflow and outflow to the left lower extremity. This would allow us to obtain diagnostic information as well as intervene on any stenosis or occlusion to try to improve blood flow to the left leg.. We discussed the risks and benefits of the procedure. Patient would like to hold off at this time and she'll call us back to schedule the procedure if she desires. We discussed the risks of smoking and her risk for future left lower extremity amputation. She is on aspirin, statin and MARIANA inhibitor's which are cardioprotective. Her last fasting glucose was 116 in November. No hemoglobin A1c in the system. We discussed the importance of glucose management. I spent 30 minutes in consultation with the patient. Thank you for this referral. CC Dr. Almodovar Allergies Coded Allergies: Penicillins (Verified Allergy, Intermediate, HIVES, 12/18/19) pregabalin (Verified Allergy, Unknown, SPASMS, 12/18/19) morphine (Verified Adverse Reaction, Intermediate, HALLUCINATIONS, 12/18/19) codeine (Verified Adverse Reaction, Mild, NAUSEA, 12/18/19) Home Medications Scheduled Aspirin (Aspirin), 325 MG PO DAILY, (Reported) Bupropion HCl (Bupropion HCl Sr), 150 MG PO DAILY, (Reported) Ezetimibe (Zetia), 10 MG PO DAILY, (Reported) Ferrous Sulfate (Iron), 1 TAB PO DAILY Fluoxetine HCl (Fluoxetine HCl), 30 MG PO DAILY, (Reported) Gabapentin (Gabapentin), 600 MG PO TID, (Reported) Melatonin (Melatonin), 15 MG PO QHS, (Reported) Mirtazapine (Mirtazapine), 45 MG PO QHS, (Reported) Nortriptyline HCl (Nortriptyline HCl), 10 MG PO QHS, (Reported) Nystatin (Nystatin Oral Susp), 5 ML PO QID Olmesartan Medoxomil (Olmesartan Medoxomil), 20 MG PO DAILY, (Reported) Omeprazole (Omeprazole), 20 MG PO DAILY, (Reported) Rivaroxaban (Xarelto), 20 MG PO DAILY, (Reported) Rosuvastatin Calcium (Rosuvastatin Calcium), 5 MG PO QHS, (Reported) Sitagliptin Phosphate (Januvia), 100 MG PO DAILY, (Reported) Torsemide (Torsemide), 100 MG PO DAILY, (Reported) Scheduled PRN Lorazepam (Lorazepam), 0.5 MG PO DAILY PRN for ANXIETY, (Reported) DIEGO DELGADO MD May 19, 2020 14:17
== END ==
LOC: M TMIRPOV 12:52
PROVIDERS: ATTEND Radiology Diagnostic Radiology
DX: L97.329 Non-pressure chronic ulcer of left ankle with unspecified severity (principal); M79.605 Pain in left leg; I10 Essential (primary) hypertension; E78.5 Hyperlipidemia, unspecified; E11.9 Type 2 diabetes mellitus without complications; F17.210 Nicotine dependence, cigarettes, uncomplicated; I69.998 Other sequelae following unspecified cerebrovascular disease; Z79.01 Long term (current) use of anticoagulants; Z79.82 Long term (current) use of aspirin; Z79.899 Other long term (current) drug therapy; Z88.0 Allergy status to penicillin; Z88.5 Allergy status to narcotic agent; Z88.8 Allergy status to other drugs, medicaments and biological substances; Z95.828 Presence of other vascular implants and grafts

== ENCOUNTER → 2020-09-14 | Outpatient (CLI) | payer MEDICARE, MEDICAID ==
[~2020-09-14] MED LIST changes: +ACET-897 PO; +ATIV1TAB10 PO; +ATOR40TA75 PO; +BUPR150T5 PO; +FERR325T16 PO; +FLUO40CA PO; +LEVO750T14 PO; +MELA3TAB10 PO; +MIRT-62 PO; +NORC1TAB7 PO
--- NOTE | 2020-09-14 15:40 | REP ---
INDICATION: STENOSIS, LEFT LEG ULCER COMPARISON: [facility] 04/01/2013. TECHNIQUE: Real-time ultrasound evaluation and duplex Doppler interrogation of the extracranial carotid vasculature is performed. FINDINGS: There is known occlusion of the right internal carotid artery. There is a stent in the patent left internal carotid artery with no evidence of significant internal narrowing or stenosis. There is occlusion of the left external carotid artery. Vertebral arteries demonstrate normal direction of flow. RIGHT LEFT Peak systolic velocity ICA occluded cm/s 112.2 cm/s End diastolic velocity ICA occluded cm/s 26.6 cm/s Peak systolic velocity CCA 80.5 cm/s 79.2cm/s Peak systolic velocity ECA 192.8 cm/s occluded cm/s ICA/CCA ratio - 2.0 IMPRESSION: Known occlusion right internal carotid artery. Left internal carotid artery stent, patent with no significant stenosis. <Electronically signed by Jax Gutierrez > 09/14/20 [id number]
--- NOTE | 2020-09-14 15:57 | REP ---
INDICATION: STENOSIS, LEFT LEG ULCER COMPARISON: 02/20/2020. TECHNIQUE: Real time gutierrez scale and Duplex Doppler evaluation of the bilateral lower extremity arterial vasculature using linear high frequency transducer. FINDINGS: Gutierrez scale and duplex doppler images demonstrate limited evaluation of the common and external iliac arteries due to bowel gas. The distal abdominal aorta could not be visualized. Flow velocities in the left external iliac artery suggests stenosis approximately 2-1. Monophasic waveforms are seen in both common and external iliac arteries. There has been a right-sided above knee amputation. Monophasic waveforms are seen in the patent common femoral and superficial femoral arteries. There is occlusion of the torres martinez right common femoral artery proximally with reconstitution just proximal to the bypass graft. There is occlusion of the bypass graft noted. The mid left superficial femoral artery is occluded as is the left popliteal artery and tibioperoneal trunk. There appears to be reconstitution of the proximal anterior and posterior tibial arteries. There is occlusion of the distal posterior tibial artery. Monophasic waveforms are seen throughout the patent arterial structures of the left lower extremity. Peak systolic velocities (cm/sec) Common iliac artery: Right 226; left 170 External iliac artery: Right 178.2; left 364.5 Common femoral artery: Right 131; Left 304 Profunda femoris: Right 120; Left 90 SFA (proximal): Right 28; Left 14 SFA (mid): Right 44; Left occluded SFA (distal): Right -; Left occluded Popliteal artery: Right -; Left occluded YOLANDA (prox.): Right -; Left 67 Tibioperoneal trunk: Right -; Left occluded AIRLINE RESERVATION AGENT (prox.): Right -; Left 56 AIRLINE RESERVATION AGENT (distal): Right -; Left occluded YOLANDA (distal): Right -; Left 32 IMPRESSION: Suspected stenosis left external iliac artery approximately 2-1. Occlusion of date of right common femoral artery proximally with reconstitution just proximal to occluded bypass graft. Occlusion from mid left SFA through tibial peroneal trunk. Reconstitution proximal anterior posterior tibial arteries. Occlusion distal posterior tibial artery. <Electronically signed by Jax Gutierrez > 09/14/20 [id number]
== END ==
LOC: M RAD 12:46
PROVIDERS: ATTEND Physician Assistant
DX: I65.23 Occlusion and stenosis of bilateral carotid arteries (principal); I70.248 Atherosclerosis of native arteries of left leg with ulceration of other part of lower leg

== ENCOUNTER → 2020-11-12 | Outpatient (REF) | payer MEDICARE, MEDICAID | LOC: M LAB REF 16:07 | PROVIDERS: ATTEND Internal Medicine | DX: S81.802A Unspecified open wound, left lower leg, initial encounter (principal); X58.XXXA Exposure to other specified factors, initial encounter; Y92.9 Unspecified place or not applicable ==

== ENCOUNTER → 2021-02-01 | Outpatient (REF) | payer MEDICARE, MEDICAID ==
[~2021-02-01] MED LIST changes: +FERR324T21 PO; -FERR325T16 PO
[2021-02-01 17:13] LABS: BASOPHILS 1 % (0-1); EOSINOPHILS 1 % (0-3); LYMPHOCYTES 13 % (16-44); MONOCYTES 2 % (0-5); NEUTROPHILS 83 % (28-66); PLATELET ESTIMATE NORMAL (NORMAL)
== END ==
LOC: M LAB REF 16:23
PROVIDERS: ATTEND Internal Medicine
DX: D72.829 Elevated white blood cell count, unspecified (principal); D72.89 Other specified disorders of white blood cells

== ENCOUNTER → 2021-08-19 | Outpatient (REF) | payer MEDICARE, MEDICAID ==
[2021-08-19 13:11] LABS: TOTAL 25(OH) VITAMIN D 59.8 NG/ML (30.0-100.0)
[2021-08-19 13:12] LABS: PTH INTACT 26.5 PG/ML (18.5-88.0)
== END ==
LOC: M LAB REF 12:25
PROVIDERS: ATTEND Internal Medicine
DX: R74.8 Abnormal levels of other serum enzymes (principal)

== ENCOUNTER → 2021-09-26 | Outpatient (CLI) | payer MEDICARE, MEDICAID ==
[~2021-09-26] MED LIST changes: +OMEP-173 PO; -OMEP-218 PO
== END ==
LOC: M RAD 12:45
PROVIDERS: ATTEND Surgery
DX: I87.312 Chronic venous hypertension (idiopathic) with ulcer of left lower extremity (principal); I73.9 Peripheral vascular disease, unspecified

== ENCOUNTER → 2021-10-11 | Outpatient (POV) | payer MEDICARE, MEDICAID ==
[~2021-10-11] VITALS: Ht 160 cm; Wt 68.1 kg
[2021-10-11 13:15] VITALS: BP 198/86
== END ==
LOC: M IRPOV 12:57
PROVIDERS: ATTEND Radiology Diagnostic Radiology
DX: I70.249 Atherosclerosis of native arteries of left leg with ulceration of unspecified site (principal); I70.92 Chronic total occlusion of artery of the extremities; L97.829 Non-pressure chronic ulcer of other part of left lower leg with unspecified severity; E11.9 Type 2 diabetes mellitus without complications; E78.5 Hyperlipidemia, unspecified; F17.210 Nicotine dependence, cigarettes, uncomplicated; I10 Essential (primary) hypertension; Z88.0 Allergy status to penicillin; Z88.5 Allergy status to narcotic agent; Z88.8 Allergy status to other drugs, medicaments and biological substances; Z89.611 Acquired absence of right leg above knee

== ENCOUNTER → 2021-12-12 | Outpatient (CLI) | payer MEDICARE, MEDICAID ==
[~2021-12-12] MED LIST changes: +BUPR-71 PO; -BUPR150T5 PO
== END ==
LOC: M RAD 12:57
PROVIDERS: ATTEND Internal Medicine
DX: Z87.891 Personal history of nicotine dependence (principal)

== ENCOUNTER → 2022-01-24 | Outpatient (CLI) | payer MEDICARE, MEDICAID | LOC: M PLARAD 08:43 | PROVIDERS: ATTEND Internal Medicine | DX: R91.1 Solitary pulmonary nodule (principal) | CPT/HCPCS: 78815; A9552 ==

== ENCOUNTER → 2022-11-13 | Outpatient (REF) | payer MEDICARE, MEDICAID ==
[~2022-11-13] MED LIST changes: -MELA10TA PO; +MELATONIN CR10 MG PO; +NYST-38 PO; -NYST50SS PO
== END ==
LOC: M LAB REF 13:12
PROVIDERS: ATTEND Internal Medicine
DX: R74.8 Abnormal levels of other serum enzymes (principal)

== ENCOUNTER → 2022-11-23 | Outpatient (CLI) | payer MEDICARE, MEDICAID | LOC: M RAD 08:23 | PROVIDERS: ATTEND Internal Medicine | DX: R91.8 Other nonspecific abnormal finding of lung field (principal) ==

== ENCOUNTER → 2022-12-22 | Outpatient (CLI) | payer MEDICARE, MEDICAID | LOC: M RAD 11:08 | PROVIDERS: ATTEND Physician Assistant | DX: I65.23 Occlusion and stenosis of bilateral carotid arteries (principal); I73.9 Peripheral vascular disease, unspecified ==

== ENCOUNTER → 2023-01-05 | Outpatient (CLI) | payer MEDICARE, MEDICAID | LOC: M WHC 14:14 | PROVIDERS: ATTEND Internal Medicine | DX: Z12.31 Encounter for screening mammogram for malignant neoplasm of breast (principal); N63.20 Unspecified lump in the left breast, unspecified quadrant ==

== ENCOUNTER → 2023-01-24 | Outpatient (CLI) | payer MEDICARE, MEDICAID | LOC: M WHC 15:19 | PROVIDERS: ATTEND Internal Medicine | DX: N64.9 Disorder of breast, unspecified (principal) ==

== ENCOUNTER → 2023-04-06 | Outpatient (CLI) | payer MEDICARE, MEDICAID ==
[~2023-04-06] MED LIST changes: +CVS-161 PO; +FARX1TAB3 PO; +NEBI5TAB PO; +VITMTA PO
== END ==
LOC: M RAD 14:38
PROVIDERS: ATTEND Internal Medicine Pulmonary Disease
DX: R91.8 Other nonspecific abnormal finding of lung field (principal)

== ENCOUNTER 2023-05-09 12:14 | Observation (INO) | payer MEDICARE, MEDICAID ==
[~2023-05-09] VITALS: Ht 154.9 cm; Wt 63.0 kg
[2023-05-09] VITALS (7 sets, daily range): BP systolic 118–163; BP diastolic 56–77; TEMP 97.3–97.7; O2SAT 90–94
[~2023-05-09 12:14] MED LIST changes: +ALBUTEROL SULFATE 2.5MG/0.5ML INH NEB SOLN INH ONE; +EZET10TA58 PO; +LIDOCAINE 2% 100MG/5ML SDV (FOR ANES.) As Ordered ONE; +LIDOCAINE PRES-FREE 2% 10ML AMP INH ONE; +MIDAZOLAM INJ 2MG/2ML VIAL As Ordered ONE; -MIRT-62 PO; +MIRT-88 PO; +ONDANSETRON 4MG 2ML VIAL As Ordered ONE; +ROCURONIUM BROMIDE 50MG/5ML VIAL As Ordered ONE; +SUGAMMADEX SODIUM 500 MG/5 ML VIAL (BRIDION) As Ordered ONE; -ZETI10TA16 PO; +fentaNYL 100 MCG/2 ML INJECTION As Ordered ONE; +propofoL 200 MG/20 ML VIAL As Ordered ONE
[2023-05-09] MEDS ORDERED: LR 1,000 ML IV SCH ×2 (12:55→15:25)
[2023-05-09] MEDS ORDERED: SEMA0.257 SC (13:18)
[2023-05-09] MEDS ORDERED: HYDR-3713 PO (13:18)
[2023-05-09] MEDS ORDERED: ATOR40TA75 PO (13:18)
[2023-05-09] MEDS ORDERED: BUPR150T12 PO (13:18)
[2023-05-09] MEDS ORDERED: CLOP75TA99 PO (13:18)
[2023-05-09] MEDS ORDERED: HOME MED LIST COMPLETE! XX SCH (13:25)
[2023-05-09] MEDS ORDERED: CETACAINE SPRAY 5GM As Ordered ONE (14:04)
[2023-05-09] MEDS ORDERED: THROMBIN 5,000 UNITS VIAL As Ordered ONE (14:04)
[2023-05-09] MEDS ORDERED: EPINEPHrine 1MG/10ML SYRINGE 1.5IN As Ordered ONE (14:15)
[2023-05-09] MEDS ORDERED: ROCURONIUM BROMIDE 50MG/5ML VIAL As Ordered ONE ×2 (14:18→14:43)
[2023-05-09] MEDS ORDERED: LIDOCAINE 2% 100MG/5ML SDV (FOR ANES.) As Ordered ONE (14:18)
[2023-05-09] MEDS ORDERED: propofoL 200 MG/20 ML VIAL As Ordered ONE (14:18)
[2023-05-09] MEDS ORDERED: ONDANSETRON 4MG 2ML VIAL As Ordered ONE (14:19)
[2023-05-09] MEDS ORDERED: SUGAMMADEX SODIUM 500 MG/5 ML VIAL (BRIDION) As Ordered ONE (14:19)
[2023-05-09] MEDS ORDERED: fentaNYL 100 MCG/2 ML INJECTION As Ordered ONE (14:20)
[2023-05-09] MEDS ORDERED: MIDAZOLAM INJ 2MG/2ML VIAL As Ordered ONE (14:20)
[2023-05-09] MEDS ORDERED: PHENYLephrine 500MCG 5ML (100MCG/ML) SYRINGE As Ordered ONE (15:04)
[2023-05-09] MEDS ORDERED: fentaNYL 100 MCG/2 ML INJECTION IV PRN (15:25)
[2023-05-09] MEDS ORDERED: oxyCODONE 5MG TAB PO PRN (15:25)
[2023-05-09] MEDS ORDERED: METOCLOPRAMIDE INJ 10MG/2ML VIAL IV PRN (15:25)
[2023-05-09] MEDS ORDERED: ONDANSETRON 4MG 2ML VIAL IV PRN (15:25)
[2023-05-09] MEDS ORDERED: NORCO, ANEXSIA 5/325MG TABLET (HYDROcodone/ACETAMINOPHEN) PO PRN (17:55)
[2023-05-09] MEDS: GABAPENTIN 300 MG CAP PO SCH (20:20)
[2023-05-09] MEDS ORDERED: MIRTAZAPINE 15 MG TAB PO SCH (21:00)
[2023-05-09] MEDS ORDERED: NORTRIPTYLINE 10 MG CAP PO SCH (21:00)
[2023-05-09] MEDS ORDERED: OMEPRAZOLE 20MG CAP PO SCH (21:00)
[2023-05-10 01:30] VITALS: BP 133/60; TEMP 96.8; O2SAT 91
[2023-05-10 05:30] VITALS: BP 152/72; TEMP 97.5; O2SAT 91
[2023-05-10] MEDS ORDERED: EZETIMIBE 10MG TABLET (ZETIA) PO SCH (09:00)
[2023-05-10] MEDS ORDERED: OLMESARTAN MEDOXOMIL 20 MG TAB (BENICAR) PO SCH (09:00)
[2023-05-10] MEDS ORDERED: DAPAGLIFLOZIN PROPANEDIOL 10MG TABLET (FARXIGA) PO SCH (09:00)
[2023-05-10] MEDS ORDERED: FLUoxetine 20MG CAP PO SCH (09:00)
[2023-05-10] MEDS ORDERED: ATORVASTATIN 20 MG TAB PO SCH (09:00)
[2023-05-10] MEDS ORDERED: TORSEMIDE (DEMADEX) 50 MG PER 1/2 TAB PO SCH (09:00)
[2023-05-10] MEDS ORDERED: NEBIVOLOL 5 MG TAB (BYSTOLIC) PO SCH (09:00)
[2023-05-10] MEDS ORDERED: buPROPion **XL** TABLET 150MG (WELLBUTRIN XL) PO SCH (09:00)
[2023-05-10] MEDS ORDERED: CLOPIDOGREL 75 MG TAB PO SCH (09:00)
[2023-05-10 09:30] VITALS: BP 155/75; TEMP 97.7; O2SAT 94
[2023-05-10] MEDS: GABAPENTIN 300 MG CAP PO SCH (10:08)
== END 2023-05-10 12:27 | disposition home or self-care (01) ==
LOC: M SDC 12:14 → M RR INP 15:42 → M MSPAV 16:30
PROVIDERS: ADMIT Internal Medicine Nephrology; ATTEND Internal Medicine Nephrology
DX: R91.8 Other nonspecific abnormal finding of lung field (principal); E11.42 Type 2 diabetes mellitus with diabetic polyneuropathy; I73.9 Peripheral vascular disease, unspecified; Z89.611 Acquired absence of right leg above knee; Z99.3 Dependence on wheelchair; I69.352 Hemiplegia and hemiparesis following cerebral infarction affecting left dominant side; Z86.718 Personal history of other venous thrombosis and embolism; Z86.711 Personal history of pulmonary embolism; I10 Essential (primary) hypertension; E78.5 Hyperlipidemia, unspecified; F41.9 Anxiety disorder, unspecified; F32.A Depression, unspecified; Z88.5 Allergy status to narcotic agent; Z88.8 Allergy status to other drugs, medicaments and biological substances; F17.210 Nicotine dependence, cigarettes, uncomplicated; Z79.899 Other long term (current) drug therapy; Z79.84 Long term (current) use of oral hypoglycemic drugs; Z79.01 Long term (current) use of anticoagulants; Z79.02 Long term (current) use of antithrombotics/antiplatelets
CPT/HCPCS: 31626; 31627; 31628; 31629; 31654; 71045; 76000; 87635; 88173; 88305; A4648; G0378; J0171; J1100; J2250; J2371; J2405; J3010

== ENCOUNTER → 2023-06-21 | Outpatient (CLI) | payer MEDICARE, MEDICAID ==
[~2023-06-21] MED LIST changes: -ALBUTEROL SULFATE 2.5MG/0.5ML INH NEB SOLN INH ONE; +BUPR150T12 PO; +CLOP75TA99 PO; -LIDOCAINE 2% 100MG/5ML SDV (FOR ANES.) As Ordered ONE; -LIDOCAINE PRES-FREE 2% 10ML AMP INH ONE; -MIDAZOLAM INJ 2MG/2ML VIAL As Ordered ONE; -ONDANSETRON 4MG 2ML VIAL As Ordered ONE; -ROCURONIUM BROMIDE 50MG/5ML VIAL As Ordered ONE; +SEMA0.257 SC; -SUGAMMADEX SODIUM 500 MG/5 ML VIAL (BRIDION) As Ordered ONE; -fentaNYL 100 MCG/2 ML INJECTION As Ordered ONE; -propofoL 200 MG/20 ML VIAL As Ordered ONE
== END ==
LOC: M RAD 13:36
PROVIDERS: ATTEND Internal Medicine
DX: M25.511 Pain in right shoulder (principal)

== ENCOUNTER → 2023-07-25 | Outpatient (CLI) | payer MEDICARE, MEDICAID | LOC: M RAD 11:53 | PROVIDERS: ATTEND Internal Medicine Pulmonary Disease | DX: R91.8 Other nonspecific abnormal finding of lung field (principal) ==

== ENCOUNTER → 2023-08-22 | Outpatient (REF) | payer MEDICARE, MEDICAID ==
[~2023-08-22] MED LIST changes: -OLME20TA2 PO; +OLME20TA50 PO
== END ==
LOC: M LAB REF 16:36
PROVIDERS: ATTEND Internal Medicine
DX: R74.8 Abnormal levels of other serum enzymes (principal)

== ENCOUNTER 2023-12-28 16:33 | Inpatient (IN) | payer MEDICARE, MEDICAID ==
[~2023-12-28] VITALS: Ht 157.5 cm; Wt 62.6 kg
[~2023-12-28 16:33] MED LIST changes: +ROSU5TAB40 PO; -ROSU5TAB5 PO
[2023-12-28 17:17] LABS: BASO # 0.1 10^3/uL (0.0-0.2); BASO % 1.1 % (0.0-1.0); EOS # 0.1 10^3/uL (0.0-0.5); EOS % 1.2 % (0.0-3.0); HEMOGLOBIN 14.3 g/dl (12.0-15.5); LYMPH # 2.4 10^3/uL (1.5-5.0); MEAN CORPUSCULAR HEMOGLOBIN 29.1 pg (27.0-33.0); MEAN CORPUSCULAR HGB CONC 32.5 g/dl (32.0-36.5); MEAN CORPUSCULAR VOLUME 89.4 fl (80.0-96.0); MONO # 0.5 10^3/uL (0.0-0.8); MONO % 3.9 % (2.0-8.0); NEUTROPHILS # 8.9 10^3/uL (1.5-8.5); NEUTROPHILS % 73.5 % (36.0-66.0); PLATELET COUNT, AUTOMATED 361 10^3/uL (150-450); RED BLOOD COUNT 4.92 10^6/uL (4.00-5.40); WHITE BLOOD COUNT 12.1 10^3/uL (4.0-10.0)
[2023-12-28 17:24] LABS: ERYTHROCYTE SEDIMENTATION RATE 57 mm/hr (0-30)
[2023-12-28 17:47] LABS: BLOOD UREA NITROGEN 14 MG/DL (9-23); CALCIUM LEVEL 8.9 MG/DL (8.3-10.6); CARBON DIOXIDE LEVEL 30 MMOL/L (20-31); CHLORIDE LEVEL 107 MMOL/L (98-107); CREATININE FOR GFR 0.75 MG/DL (0.55-1.30); GLOMERULAR FILTRATION RATE > 60.0 (>39); GLUCOSE, FASTING 119 MG/DL (74-106); POTASSIUM SERUM 3.8 MMOL/L (3.5-5.1); SODIUM LEVEL 143 MMOL/L (136-145)
[2023-12-28] MEDS ORDERED: MED REC IN PROGRESS XX SCH (18:55)
[2023-12-28] MEDS: VANCOMYCIN HCL 1,000 MG, VIAL MATE ADAPTER 1 EACH in D5W 250 ML IV ONE (18:56)
[2023-12-28] MEDS: PIPERACILLIN/TAZOBACTAM SOD 4.5 GM in D5W MINI-BAG PLUS 50 ML IV ONE (20:01)
[2023-12-28] MEDS ORDERED: SEMA1PEN2 INJ (20:23)
[2023-12-28] MEDS ORDERED: MULTTAB61 PO (20:23)
[2023-12-28] MEDS ORDERED: VANCOMYCIN HCL 1,000 MG, VIAL MATE ADAPTER 1 EACH in D5W 250 ML IV SCH (20:25)
[2023-12-28] MEDS ORDERED: NICO-242 PO (20:25)
[2023-12-28] MEDS ORDERED: GLUCAGON INJ 1MG VIAL SC PRN (20:30)
[2023-12-28] MEDS ORDERED: GLUCOSE 4 GM CHEW PO PRN (20:30)
[2023-12-28] MEDS ORDERED: HOME MED LIST COMPLETE! XX SCH (20:30)
[2023-12-28] MEDS ORDERED: DEXTROSE 50% 50ML SYRINGE IV PRN (20:30)
[2023-12-28] MEDS: DOCUSATE SODIUM 100MG CAPSULE PO SCH (21:00)
[2023-12-28] MEDS: INSULIN LISPRO (NovoLOG) PER UNIT SC SCH (21:00)
[2023-12-28 21:25] VITALS: BP 159/74; TEMP 97.9; O2SAT 99
[2023-12-28 21:44] LABS: HEMOGLOBIN A1c 6.6 % (4.0-6.0)
[2023-12-28 22:00] VITALS: BP 159/74; TEMP 97.9; O2SAT 99
[2023-12-28] MEDS: VANCOMYCIN HCL 500 MG in D5W MINI-BAG PLUS 100 ML IV ONE (23:22)
[2023-12-29] VITALS: BP 134/57; TEMP 97.3; O2SAT 98
[2023-12-29] MEDS: PERCOCET 5MG/325MG TAB PO PRN (00:13)
[2023-12-29] MEDS: PIPERACILLIN/TAZOBACTAM SOD 3.375 GM in D5W MINI-BAG PLUS 50 ML IV SCH (01:03)
[2023-12-29 04:00] VITALS: BP 132/57; TEMP 97.5; O2SAT 95
[2023-12-29 06:31] LABS: HEMOGLOBIN 13.8 g/dl (12.0-15.5); MEAN CORPUSCULAR HEMOGLOBIN 29.2 pg (27.0-33.0); MEAN CORPUSCULAR HGB CONC 32.9 g/dl (32.0-36.5); MEAN CORPUSCULAR VOLUME 88.8 fl (80.0-96.0); PLATELET COUNT, AUTOMATED 312 10^3/uL (150-450); RED BLOOD COUNT 4.73 10^6/uL (4.00-5.40); WHITE BLOOD COUNT 11.6 10^3/uL (4.0-10.0)
[2023-12-29 07:01] LABS: ALBUMIN 2.5 G/DL (3.2-5.2); ALKALINE PHOSPHATASE 176 U/L (46-116); ALT/SGPT 9 U/L (7.0-40); AST/SGOT 9 U/L (<34); BILIRUBIN,TOTAL 0.3 MG/DL (0.3-1.2); BLOOD UREA NITROGEN 12 MG/DL (9-23); CALCIUM LEVEL 8.7 MG/DL (8.3-10.6); CARBON DIOXIDE LEVEL 29 MMOL/L (20-31); CHLORIDE LEVEL 108 MMOL/L (98-107); CREATININE FOR GFR 0.81 MG/DL (0.55-1.30); GLOMERULAR FILTRATION RATE > 60.0 (>39); GLUCOSE, FASTING 84 MG/DL (74-106); MAGNESIUM LEVEL 1.6 MG/DL (1.8-2.4); POTASSIUM SERUM 3.5 MMOL/L (3.5-5.1); SODIUM LEVEL 142 MMOL/L (136-145); TOTAL PROTEIN 5.8 G/DL (5.7-8.2)
[2023-12-29] MEDS: INSULIN LISPRO (NovoLOG) PER UNIT SC SCH (07:30)
[2023-12-29 08:33] VITALS: TEMP 99.7
[2023-12-29 09:56] LABS: VANCOMYCIN RANDOM 14.3 UG/ML
[2023-12-29 10:00] VITALS: BP 112/49; TEMP 97.7; O2SAT 95
[2023-12-29] MEDS: VANCOMYCIN HCL 750 MG, VIAL MATE ADAPTER 1 EACH in D5W 250 ML IV SCH ×2 (11:27→12:42)
[2023-12-29] MEDS: buPROPion **XL** TABLET 150MG (WELLBUTRIN XL) PO SCH (11:31)
[2023-12-29] MEDS: ATORVASTATIN 20 MG TAB PO SCH (11:31)
[2023-12-29] MEDS: FLUoxetine 20MG CAP PO SCH (11:31)
[2023-12-29] MEDS: DAPAGLIFLOZIN PROPANEDIOL 10MG TABLET (FARXIGA) PO SCH (11:32)
[2023-12-29] MEDS: EZETIMIBE 10MG TABLET (ZETIA) PO SCH (11:32)
[2023-12-29] MEDS: FERROUS GLUCONATE 324 MG TAB PO SCH (11:32)
[2023-12-29] MEDS: GABAPENTIN 300 MG CAP PO SCH (11:32)
[2023-12-29] MEDS: CLOPIDOGREL 75 MG TAB PO SCH (11:32)
[2023-12-29] MEDS: LORazepam 0.5 MG TAB PO SCH (11:33)
[2023-12-29] MEDS: RIVAROXABAN 20MG TAB (XARELTO) PO SCH (11:34)
[2023-12-29] MEDS: NEBIVOLOL 5 MG TAB (BYSTOLIC) PO SCH (11:36)
[2023-12-29] MEDS: OLMESARTAN MEDOXOMIL 20 MG TAB (BENICAR) PO SCH (11:36)
[2023-12-29] MEDS: TORSEMIDE 100 MG TAB PO SCH (11:36)
[2023-12-29] MEDS ORDERED: VANCOMYCIN HCL 750 MG, VIAL MATE ADAPTER 1 EACH in D5W 250 ML IV SCH (13:00)
[2023-12-29 14:00] VITALS: BP 113/90; TEMP 97.7; O2SAT 93
[2023-12-29] MEDS ORDERED: VANCOMYCIN HCL 500 MG in D5W MINI-BAG PLUS 100 ML IV SCH (14:00)
[2023-12-29] MEDS: OMEPRAZOLE 20MG CAP PO SCH (19:55)
[2023-12-29] MEDS: NORTRIPTYLINE 10 MG CAP PO SCH (19:56)
[2023-12-29 20:00] VITALS: BP 98/51; TEMP 97.5; O2SAT 93
[2023-12-30] VITALS: BP 117/60; TEMP 97.3; O2SAT 93
[2023-12-30 04:00] VITALS: BP 116/60; TEMP 97.3; O2SAT 92
[2023-12-30 10:00] VITALS: BP 112/61; TEMP 97.5; O2SAT 95
[2023-12-30 10:19] LABS: BASO # 0.1 10^3/uL (0.0-0.2); BASO % 0.8 % (0.0-1.0); EOS # 0.2 10^3/uL (0.0-0.5); HEMATOCRIT 40.5 % (36.0-47.0); HEMOGLOBIN 13.1 g/dl (12.0-15.5); LYMPH # 1.8 10^3/uL (1.5-5.0); LYMPH % 15.5 % (24.0-44.0); MEAN CORPUSCULAR HGB CONC 32.3 g/dl (32.0-36.5); MEAN CORPUSCULAR VOLUME 89.8 fl (80.0-96.0); MONO # 0.5 10^3/uL (0.0-0.8); MONO % 4.3 % (2.0-8.0); NEUTROPHILS # 8.8 10^3/uL (1.5-8.5); PLATELET COUNT, AUTOMATED 274 10^3/uL (150-450); RED BLOOD COUNT 4.51 10^6/uL (4.00-5.40); WHITE BLOOD COUNT 11.4 10^3/uL (4.0-10.0)
[2023-12-30 10:24] LABS: ERYTHROCYTE SEDIMENTATION RATE 36 mm/hr (0-30)
[2023-12-30 11:02] LABS: BLOOD UREA NITROGEN 12 MG/DL (9-23); CARBON DIOXIDE LEVEL 25 MMOL/L (20-31); CHLORIDE LEVEL 111 MMOL/L (98-107); GLOMERULAR FILTRATION RATE > 60.0 (>39); GLUCOSE, FASTING 213 MG/DL (74-106); POTASSIUM SERUM 3.3 MMOL/L (3.5-5.1); SODIUM LEVEL 143 MMOL/L (136-145)
[2023-12-30] MEDS: CEFEPIME HCL 1 GM in D5W MINI-BAG PLUS 50 ML IV SCH (12:19)
[2023-12-30 14:00] VITALS: BP 103/87; TEMP 97.7; O2SAT 95
[2023-12-30 18:00] VITALS: BP 143/58; TEMP 98.2; O2SAT 96
[2023-12-30 20:00] VITALS: BP 153/68; TEMP 97.5; O2SAT 93
[2023-12-30] MEDS: MIRTAZAPINE 15 MG TAB PO SCH (22:37)
[2023-12-31 02:00] VITALS: BP 114/62; TEMP 97.9; O2SAT 95
[2023-12-31 06:00] VITALS: BP 150/82; TEMP 97.9; O2SAT 92
[2023-12-31 07:33] LABS: BASO # 0.1 10^3/uL (0.0-0.2); BASO % 0.9 % (0.0-1.0); EOS # 0.3 10^3/uL (0.0-0.5); EOS % 2.2 % (0.0-3.0); HEMATOCRIT 42.7 % (36.0-47.0); HEMOGLOBIN 13.6 g/dl (12.0-15.5); LYMPH # 1.7 10^3/uL (1.5-5.0); LYMPH % 14.4 % (24.0-44.0); MEAN CORPUSCULAR HEMOGLOBIN 28.6 pg (27.0-33.0); MEAN CORPUSCULAR HGB CONC 31.9 g/dl (32.0-36.5); MEAN CORPUSCULAR VOLUME 89.9 fl (80.0-96.0); MONO # 0.7 10^3/uL (0.0-0.8); MONO % 5.8 % (2.0-8.0); NEUTROPHILS # 8.9 10^3/uL (1.5-8.5); NEUTROPHILS % 76.3 % (36.0-66.0); PLATELET COUNT, AUTOMATED 293 10^3/uL (150-450); RED BLOOD COUNT 4.75 10^6/uL (4.00-5.40); WHITE BLOOD COUNT 11.6 10^3/uL (4.0-10.0)
[2023-12-31 07:56] LABS: BLOOD UREA NITROGEN 12 MG/DL (9-23); CALCIUM LEVEL 8.5 MG/DL (8.3-10.6); CARBON DIOXIDE LEVEL 26 MMOL/L (20-31); CHLORIDE LEVEL 112 MMOL/L (98-107); CREATININE FOR GFR 0.77 MG/DL (0.55-1.30); GLOMERULAR FILTRATION RATE > 60.0 (>39); GLUCOSE, FASTING 128 MG/DL (74-106); POTASSIUM SERUM 3.5 MMOL/L (3.5-5.1); SODIUM LEVEL 143 MMOL/L (136-145)
[2023-12-31 08:56] VITALS: BP 122/82
[2023-12-31 10:00] VITALS: BP 137/81; TEMP 98.1; O2SAT 94
[2023-12-31 14:00] VITALS: BP 134/60; TEMP 97.7; O2SAT 96
[2023-12-31] MEDS ORDERED: PROHANCE 279.3MG/ML 15ML VIAL As Ordered ONE (19:31)
[2023-12-31 20:37] VITALS: BP 150/67; TEMP 97.7; O2SAT 96
[2024-01-01] MEDS: HYDROMORPHONE HCL 0.5 MG/ 0.5 ML SYRINGE IV ONE (01:27)
[2024-01-01 05:49] VITALS: BP 145/68; TEMP 97.3; O2SAT 94
[2024-01-01 07:47] LABS: BASO # 0.1 10^3/uL (0.0-0.2); BASO % 0.7 % (0.0-1.0); EOS # 0.2 10^3/uL (0.0-0.5); HEMATOCRIT 40.4 % (36.0-47.0); HEMOGLOBIN 13.1 g/dl (12.0-15.5); LYMPH # 1.8 10^3/uL (1.5-5.0); LYMPH % 15.4 % (24.0-44.0); MEAN CORPUSCULAR HEMOGLOBIN 28.8 pg (27.0-33.0); MEAN CORPUSCULAR HGB CONC 32.4 g/dl (32.0-36.5); MEAN CORPUSCULAR VOLUME 88.8 fl (80.0-96.0); MONO # 0.6 10^3/uL (0.0-0.8); MONO % 5.4 % (2.0-8.0); NEUTROPHILS # 8.9 10^3/uL (1.5-8.5); NEUTROPHILS % 76.1 % (36.0-66.0); PLATELET COUNT, AUTOMATED 271 10^3/uL (150-450); RED BLOOD COUNT 4.55 10^6/uL (4.00-5.40); WHITE BLOOD COUNT 11.7 10^3/uL (4.0-10.0)
[2024-01-01 08:15] LABS: BLOOD UREA NITROGEN 12 MG/DL (9-23); CALCIUM LEVEL 8.2 MG/DL (8.3-10.6); CARBON DIOXIDE LEVEL 26 MMOL/L (20-31); CHLORIDE LEVEL 111 MMOL/L (98-107); CREATININE FOR GFR 0.74 MG/DL (0.55-1.30); GLOMERULAR FILTRATION RATE > 60.0 (>39); GLUCOSE, FASTING 132 MG/DL (74-106); POTASSIUM SERUM 3.4 MMOL/L (3.5-5.1); SODIUM LEVEL 143 MMOL/L (136-145)
[2024-01-01] MEDS: POTASSIUM CHLORIDE 10MEQ SR TABLET PO SCH (08:33)
[2024-01-01] MEDS: ACETAMINOPHEN TAB 650MG DOSE (2X325MG) PO PRN (08:33)
[2024-01-01 10:23] LABS: MAGNESIUM LEVEL 1.8 MG/DL (1.8-2.4)
[2024-01-01 14:00] VITALS: BP 141/65; TEMP 97.3; O2SAT 97
[2024-01-01 20:00] VITALS: BP 144/60; TEMP 97.7; O2SAT 96
[2024-01-02 05:50] VITALS: BP 117/54; TEMP 97.5; O2SAT 92
[2024-01-02 06:06] LABS: BASO # 0.1 10^3/uL (0.0-0.2); BASO % 0.9 % (0.0-1.0); EOS # 0.3 10^3/uL (0.0-0.5); HEMATOCRIT 43.3 % (36.0-47.0); HEMOGLOBIN 14.1 g/dl (12.0-15.5); LYMPH # 2.1 10^3/uL (1.5-5.0); LYMPH % 16.3 % (24.0-44.0); MEAN CORPUSCULAR HEMOGLOBIN 28.9 pg (27.0-33.0); MEAN CORPUSCULAR HGB CONC 32.6 g/dl (32.0-36.5); MEAN CORPUSCULAR VOLUME 88.7 fl (80.0-96.0); MONO # 0.8 10^3/uL (0.0-0.8); MONO % 6.1 % (2.0-8.0); NEUTROPHILS # 9.4 10^3/uL (1.5-8.5); NEUTROPHILS % 74.5 % (36.0-66.0); PLATELET COUNT, AUTOMATED 308 10^3/uL (150-450); RED BLOOD COUNT 4.88 10^6/uL (4.00-5.40); WHITE BLOOD COUNT 12.7 10^3/uL (4.0-10.0)
[2024-01-02 06:45] LABS: BLOOD UREA NITROGEN 19 MG/DL (9-23); CALCIUM LEVEL 8.9 MG/DL (8.3-10.6); CARBON DIOXIDE LEVEL 25 MMOL/L (20-31); CHLORIDE LEVEL 109 MMOL/L (98-107); CREATININE FOR GFR 0.88 MG/DL (0.55-1.30); GLOMERULAR FILTRATION RATE > 60.0 (>39); GLUCOSE, FASTING 133 MG/DL (74-106); POTASSIUM SERUM 4.1 MMOL/L (3.5-5.1); SODIUM LEVEL 142 MMOL/L (136-145)
[2024-01-02] MEDS ORDERED: MIRT-10 PO (12:46)
[2024-01-02] MEDS ORDERED: CEFD300CAP PO (12:46)
[2024-01-02] MEDS ORDERED: DOXY100T PO (12:46)
[2024-01-02] MEDS: DOXYCYCLINE HYCLATE 100MG TABLET PO SCH (12:48)
[2024-01-02] MEDS: CEFDINIR 300 MG CAP (OMNICEF) PO SCH (12:48)
[2024-01-02 14:03] VITALS: BP 123/61; TEMP 97.7; O2SAT 94
== END 2024-01-02 14:59 | disposition home health service (06) | DRG 300 ==
LOC: M ED 16:33 → M ED INP 20:22 → M MSPAV 21:24
PROVIDERS: ADMIT Preventive Medicine Undersea and Hyperbaric Medicine; ATTEND Hospitalist
DX: E11.51 Type 2 diabetes mellitus with diabetic peripheral angiopathy without gangrene (principal); I69.354 Hemiplegia and hemiparesis following cerebral infarction affecting left non-dominant side; L97.922 Non-pressure chronic ulcer of unspecified part of left lower leg with fat layer exposed; L03.116 Cellulitis of left lower limb; I10 Essential (primary) hypertension; E11.628 Type 2 diabetes mellitus with other skin complications; R91.1 Solitary pulmonary nodule; I65.23 Occlusion and stenosis of bilateral carotid arteries; E78.5 Hyperlipidemia, unspecified; K21.9 Gastro-esophageal reflux disease without esophagitis; M48.061 Spinal stenosis, lumbar region without neurogenic claudication; I25.10 Atherosclerotic heart disease of native coronary artery without angina pectoris; E11.42 Type 2 diabetes mellitus with diabetic polyneuropathy; M79.89 Other specified soft tissue disorders; E11.622 Type 2 diabetes mellitus with other skin ulcer; I87.2 Venous insufficiency (chronic) (peripheral); G54.6 Phantom limb syndrome with pain; F41.9 Anxiety disorder, unspecified; F17.200 Nicotine dependence, unspecified, uncomplicated; Z98.49 Cataract extraction status, unspecified eye; Z95.820 Peripheral vascular angioplasty status with implants and grafts; Z89.611 Acquired absence of right leg above knee; Z99.3 Dependence on wheelchair; Z79.02 Long term (current) use of antithrombotics/antiplatelets; Z79.899 Other long term (current) drug therapy; Z79.01 Long term (current) use of anticoagulants; Z86.711 Personal history of pulmonary embolism; Z86.718 Personal history of other venous thrombosis and embolism; Z88.5 Allergy status to narcotic agent; Z88.8 Allergy status to other drugs, medicaments and biological substances

== ENCOUNTER 2024-01-31 00:07 | Emergency (ER) | payer MEDICARE, MEDICAID ==
[~2024-01-31] VITALS: Ht 157.5 cm; Wt 61.8 kg
[~2024-01-31 00:07] MED LIST changes: +CEFD300CAP PO; +DOXY100T PO; +MIRT-10 PO; +MULTTAB61 PO; +NICO-242 PO; +SEMA1PEN2 INJ
[2024-01-31 00:53] LABS: BASO # 0.1 10^3/uL (0.0-0.2); BASO % 1.2 % (0.0-1.0); EOS # 0.1 10^3/uL (0.0-0.5); EOS % 0.8 % (0.0-3.0); HEMATOCRIT 44.8 % (36.0-47.0); HEMOGLOBIN 14.9 g/dl (12.0-15.5); LYMPH # 2.3 10^3/uL (1.5-5.0); LYMPH % 23.8 % (24.0-44.0); MEAN CORPUSCULAR HEMOGLOBIN 28.7 pg (27.0-33.0); MEAN CORPUSCULAR HGB CONC 33.3 g/dl (32.0-36.5); MEAN CORPUSCULAR VOLUME 86.3 fl (80.0-96.0); MONO # 0.6 10^3/uL (0.0-0.8); MONO % 6.5 % (2.0-8.0); NEUTROPHILS # 6.5 10^3/uL (1.5-8.5); NEUTROPHILS % 67.5 % (36.0-66.0); PLATELET COUNT, AUTOMATED 258 10^3/uL (150-450); RED BLOOD COUNT 5.19 10^6/uL (4.00-5.40); WHITE BLOOD COUNT 9.6 10^3/uL (4.0-10.0)
[2024-01-31 01:29] LABS: LIPASE 27 U/L (12-53)
[2024-01-31 01:31] LABS: ALBUMIN 3.2 G/DL (3.2-5.2); ALKALINE PHOSPHATASE 226 U/L (46-116); ALT/SGPT 28 U/L (7.0-40); AST/SGOT 23 U/L (<34); BILIRUBIN,DIRECT 0.1 MG/DL (<0.4); BILIRUBIN,TOTAL 0.3 MG/DL (0.3-1.2); BLOOD UREA NITROGEN 11 MG/DL (9-23); CALCIUM LEVEL 9.4 MG/DL (8.3-10.6); CARBON DIOXIDE LEVEL 25 MMOL/L (20-31); CHLORIDE LEVEL 104 MMOL/L (98-107); GLOMERULAR FILTRATION RATE > 60.0 (>39); GLUCOSE, FASTING 117 MG/DL (74-106); POTASSIUM SERUM 3.7 MMOL/L (3.5-5.1); SODIUM LEVEL 135 MMOL/L (136-145)
[2024-01-31] MEDS: NS 1,000 ML IV ONE (04:38)
[2024-01-31] MEDS: KETOROLAC 30 MG/ML 1ML VIAL IV ONE (04:38)
[2024-01-31] MEDS ORDERED: ISOVUE-370 76% 100ML VIAL As Ordered ONE (05:03)
[2024-01-31] MEDS ORDERED: VALA1TAB5 PO (06:30)
[2024-01-31] MEDS: valACYclovir HCL 500 MG TAB PO ONE (06:37)
[2024-01-31 10:18] VITALS: BP 184/80; TEMP 98.5; O2SAT 96
== END 2024-01-31 10:27 | disposition home or self-care (01) ==
LOC: M ED 00:07
DX: B02.9 Zoster without complications (principal); I10 Essential (primary) hypertension; E78.5 Hyperlipidemia, unspecified; F17.210 Nicotine dependence, cigarettes, uncomplicated; F12.10 Cannabis abuse, uncomplicated; Z88.8 Allergy status to other drugs, medicaments and biological substances; Z79.1 Long term (current) use of non-steroidal anti-inflammatories (NSAID); Z79.2 Long term (current) use of antibiotics; Z79.810 Long term (current) use of selective estrogen receptor modulators (SERMs); Z79.4 Long term (current) use of insulin; Z79.899 Other long term (current) drug therapy
CPT/HCPCS: 74177; 80048; 80076; 81001; 83690; 85025; 96374; 99285; J1885; Q9967

== ENCOUNTER → 2024-02-05 | Outpatient (CLI) | payer MEDICARE, MEDICAID ==
[~2024-02-05] MED LIST changes: +ISOVUE-370 76% 100ML VIAL As Ordered ONE; +VALA1TAB5 PO
== END ==
LOC: M RAD 15:03
PROVIDERS: ATTEND Surgery Vascular Surgery
DX: I70.322 Atherosclerosis of unspecified type of bypass graft(s) of the extremities with rest pain, left leg (principal)
CPT/HCPCS: 75635; Q9967